=== PATIENT | male | born 1950 | race American Indian/Alaskan Native ===

== ENCOUNTER 2018-06-09 21:34 | Inpatient (IN) | payer MEDICARE ==
--- NOTE | 2018-06-09 21:43 | C.PDOC ---
History Of Present Illness 68-year-old male, PMHx includes NIDDM, presents to the emergency department with complaints of right foot infection. Pt had some swelling to the right fourth toe. He saw Dr Mcnair approximately 10-12 days ago. He continued to wear boots at work, and now his right toe is gangrenous. He denies any fever, chills , nausea/vomiting. Time Seen by Provider: 06/09/18 21:41 History Per: Patient History/Exam Limitations: no limitations Onset/Duration Of Symptoms: Days Current Symptoms Are (Timing): Still Present Severity: Moderate Pain Scale Rating Of: 4 Reports Recently: Seen In ED, Treated By A Physician, Hospitalized Recent travel outside of the [place]: No Additional History Per: Family Past Medical History Reviewed: Historical Data, Nursing Documentation, Vital Signs Vital Signs: Last Vital Signs Temp 97.7 F 06/09/18 21:43 Pulse 70 06/09/18 21:43 Resp 14 06/09/18 21:43 BP 148/73 06/09/18 21:43 Pulse Ox 97 06/09/18 22:38 - Medical History PMH: Diabetes, HTN, Hypercholesterolemia - [facility] Procedures CLOSURE SKIN & SUBCUTANEOUS NEC (05/13/14) TOE AMPUTATION (05/13/14) VACCINATION NEC (05/13/14) Family History: States: Diabetes, Hypertension - Social History Hx Tobacco Use: No Hx Alcohol Use: Yes (long time ago) Hx Substance Use: No - Immunization History Hx Tetanus Toxoid Vaccination: No Hx Influenza Vaccination: No Hx Pneumococcal Vaccination: No Review Of Systems Constitutional: Negative for: Fever, Chills Cardiovascular: Negative for: Chest Pain Respiratory: Negative for: Shortness of Breath Gastrointestinal: Negative for: Nausea, Vomiting, Abdominal Pain Musculoskeletal: Positive for: Foot Pain Skin: Positive for: Other (gangrene r 4th toe) Neurological: Negative for: Weakness, Numbness Psych: Negative for: Anxiety Physical Exam - Physical Exam Appears: Non-toxic, No Acute Distress Skin: Warm, Dry, No Rash Head: Atraumatic, Normacephalic Eye(s): bilateral: Normal Inspection Nose: Normal Oral Mucosa: Moist Lips: Normal Appearing Neck: Supple Chest: Symmetrical Cardiovascular: Rhythm Regular, No Murmur Respiratory: No Decreased Breath Sounds, No Accessory Muscle Use Gastrointestinal/Abdominal: Soft, No Tenderness, No Distention Back: No CVA Tenderness Extremity: No Deformity, Other (right foot with mild pedal edema. Mildly gangrenous black right fourth toe. ) Extremity: Right: Painful To Bear Weight Pulses: Left Dorsalis Pedis: Normal, Right Dorsalis Pedis: Normal Neurological/Psych: Oriented x3, Normal Speech Gait: Unsteady ED Course And Treatment - Laboratory Results Result Diagrams: 06/09/18 22:02 06/09/18 22:02 ECG: Interpreted By Me, Viewed By Me ECG Rhythm: Sinus Rhythm (82), Nonspecific Changes O2 Sat by Pulse Oximetry: 97 Pulse Ox Interpretation: Normal Disposition Discussed With Dr.: Aldo Yepez Comment: accepted the pt on his service and took over the care at 11:24 PM Doctor Will See Patient In The: Hospital Counseled Patient/Family Regarding: Studies Performed, Diagnosis - Disposition Disposition: HOSPITALIZED Disposition Time: 21:43 Condition: GUARDED - POA Present On Arrival: Poor Glycemic Control - Clinical Impression Clinical Impression: Osteomyelitis of ankle or foot, Gangrene associated with diabetes mellitus - Scribe Statement The provider has reviewed the documentation as recorded by the Scribe (Samina Arrington) All medical record entries made by the Scribe were at my direction and personally dictated by me. I have reviewed the chart and agree that the record accurately reflects my personal performance of the history, physical exam, medical decision making, and the department course for this patient. I have also personally directed, reviewed, and agree with the discharge instructions and disposition. Decision To Admit - Pt Status Changed To: Hospital Disposition Of: Inpatient - Admit Certification Admit to Inpatient:: After my assessment, the patient will require hospitalization for at least two midnights. This is because of the severity of symptoms shown, intensity of services needed, and/or the medical risk in this patient being treated as an outpatient. - InPatient: Physician Admission Certification: I certify that this patient requires 2 or more midnights of care for the following reason:: After my assessment, the patient will require hospitalization for at least two midnights. This is because of the severity of symptoms shown, intensity of services needed, and/or the medical risk in this patient being treated as an outpatient. - . Bed Request Type: Regular Admitting Physician: Aldo Yepez Patient Diagnosis: Osteomyelitis of ankle or foot, Gangrene associated with diabetes mellitus
[2018-06-09 21:44] VITALS: BMI 20.9
[2018-06-09 22:05] LABS: BASO # 0.1 K/uL (0.0-0.2); EOS # 1.7 K/uL (0.0-0.7); EOS % 18.6 % (0.0-4.0); HEMOGLOBIN 11.9 g/dL (12.0-18.0); LYMPH # 2.5 K/uL (1.0-4.3); LYMPH % 27.9 % (20.0-40.0); MEAN CELL VOLUME 87.1 fL (80.0-94.0); MEAN CORPUSCULAR HEMOGLOBIN 28.9 pg (27.0-31.0); MEAN CORPUSCULAR HGB CONC 33.1 g/dL (33.0-37.0); MEAN PLATELET VOLUME 10.6 fL (7.2-11.7); MONO # 0.8 K/uL (0.0-0.8); MONO % 8.3 % (0.0-10.0); NEUT % 44.2 % (50.0-75.0); NRBC % 0.1 % (0.0-2.0); RBC 4.12 Mil/uL (4.40-5.90); RED CELL DISTRIBUTION WIDTH 13.2 % (11.5-14.5); WHITE BLOOD COUNT 9.1 K/uL (4.8-10.8)
[2018-06-09 22:08] LABS: VENOUS BLOOD GAS BASE EXCESS 1.4 mmol/L (0.0-2.0); VENOUS BLOOD GAS PCO2 52 mmHg (40-60); VENOUS BLOOD GAS PO2 24 mm/Hg (30-55); VENOUS BLOOD PH 7.34 (7.32-7.43)
[2018-06-09 22:15] LABS: INR 1.1; PROTHROMBIN TIME 12.2 SECONDS (9.7-12.2)
[2018-06-09 22:24] LABS: ALBUMIN 4.2 g/dL (3.5-5.0); ALT/SGPT 19 U/L (21-72); AST/SGOT 17 U/L (17-59); BLOOD UREA NITROGEN 24 mg/dL (9-20); CALCIUM 9.4 mg/dl (8.6-10.4); GFR NON-AFRICAN AMERICAN 55
--- NOTE | 2018-06-09 22:31 | CP.PCM.CON ---
History of Present Illness - History of Present Illness History of Present Illness: Podiatry consult notes for attending Dr. Mcnair 68-year-old male Patient, PMH of NIDDM, HTN and hypercholestremia seen and evaluated at the emergency department with complaints of right 4th toe infection and gangrene. Patient is following up with Dr. Mcnair. Patient states that he is diabetic and he has neuropathy. About a month ago he stub his toe and he didn't feel it. Patient states that his toe got injured . the it started to get swallen and ulcerating. He states that he went to Dr. Mcnair who prescribed him oral antibiotic and advise him with local wound care using bacitracin. Patient states that he followed the instructions. He states that his toe got worse and now it looks darker and ulcerated. He states that he has burning pain in his toe 5/10 on VAS scale. He denies any fever, chills, nausea/ vomiting aor SOB. Patient denies any other pedal complaint PMH: Diabetes, HTN, Hypercholesterolemia. PSH: Left 4th toe amputation. Allergies: Penicillins Social Hx: Denies smoking, ETOH or illicit drug use. Review of Systems - Review of Systems Review of Systems: As per HPI Past Patient History - Past Medical History & Family History Past Medical History?: Yes - Past Social History Smoking Status: Never Smoked - CARDIAC Hx Hypercholesterolemia: Yes Hx Hypertension: Yes - PULMONARY Hx Respiratory Disorders: No - NEUROLOGICAL Hx Neurological Disorder: No Other/Comment: dm neuropathy - HEENT Hx HEENT Problems: No - RENAL Hx Chronic Kidney Disease: No - ENDOCRINE/METABOLIC Hx Endocrine Disorders: Yes Hx Diabetes Mellitus Type 2: Yes - HEMATOLOGICAL/ONCOLOGICAL Hx Blood Disorders: No - INTEGUMENTARY Hx Dermatological Problems: Yes Other/Comment: left 4th toe brown discoloration - MUSCULOSKELETAL/RHEUMATOLOGICAL Hx Musculoskeletal Disorders: Yes Hx Falls: No - GASTROINTESTINAL Hx Gastrointestinal Disorders: No - GENITOURINARY/GYNECOLOGICAL Hx Genitourinary Disorders: No - PSYCHIATRIC Hx Substance Use: No - SURGICAL HISTORY Hx Surgeries: No - ANESTHESIA Hx Anesthesia: No Hx Anesthesia Reactions: No Hx Malignant Hyperthermia: No Meds Allergies/Adverse Reactions: Allergies Allergy/AdvReac Type Severity Reaction Status Date / Time Penicillins Allergy Verified 06/09/18 21:47 Physical Exam - Constitutional Appears: Well, Non-toxic, No Acute Distress - Head Exam Head Exam: ATRAUMATIC, NORMOCEPHALIC - Extremities Exam Additional comments: LE focused exam: Vasc: DP/PT 2/4 b/l. Cap refill < 3 sec X 8. Temp gradient warm to cool from proximal to distal. Neuro: Protective sensation diminished b/l. Derm: Right 4th toe looks hyperpigmented and gangrenous. toe tip has an ulcer 1 X 1 X 1 cm. the ulcer is tracking, probing to bone, positive malodor, positive drainage of purulent drainage. MSK: No pain on palpating the 4th right toe. Muscle power intact 5/5 in all groups. left 4th toe is amputated. - Neurological Exam Neurological exam: Alert, Oriented x3 - Psychiatric Exam Psychiatric exam: Normal Affect, Normal Mood Results - Vital Signs Recent Vital Signs: Last Vital Signs Temp 97.7 F 06/09/18 21:43 Pulse 70 06/09/18 21:43 Resp 14 06/09/18 21:43 BP 148/73 06/09/18 21:43 Pulse Ox 97 06/09/18 21:43 - Labs Result Diagrams: 06/09/18 22:02 06/09/18 22:02 Labs: Laboratory Results - last 24 hr 06/09/18 06/09/18 06/09/18 21:44 22:02 22:02 WBC 9.1 RBC 4.12 L Hgb 11.9 L Hct 35.9 MCV 87.1 MCH 28.9 MCHC 33.1 RDW 13.2 Plt Count 190 MPV 10.6 Neut % (Auto) 44.2 L Lymph % (Auto) 27.9 [place] % (Auto) 8.3 Eos % (Auto) 18.6 H Baso % (Auto) 1.0 Neut # (Auto) 4.0 Lymph # (Auto) 2.5 Porter # (Auto) 0.8 Eos # (Auto) 1.7 H Baso # (Auto) 0.1 PT 12.2 INR 1.1 APTT 32 pO2 VBG pH VBG pCO2 VBG HCO3 VBG Total CO2 VBG O2 Sat (Calc) VBG Base Excess VBG Potassium Glucose Lactate Sodium Potassium Chloride Carbon Dioxide Anion Gap BUN Creatinine Est GFR ( Amer) Est GFR (Non-Af Amer) POC Glucose (mg/dL) 196 H Random Glucose Calcium Total Bilirubin AST ALT Alkaline Phosphatase Total Protein Albumin Globulin Albumin/Globulin Ratio Venous Blood Potassium 06/09/18 06/09/18 22:02 22:04 WBC RBC Hgb Hct MCV MCH MCHC RDW Plt Count MPV Neut % (Auto) Lymph % (Auto) [place] % (Auto) Eos % (Auto) Baso % (Auto) Neut # (Auto) Lymph # (Auto) Porter # (Auto) Eos # (Auto) Baso # (Auto) PT INR APTT pO2 24 L VBG pH 7.34 VBG pCO2 52 VBG HCO3 24.4 VBG Total CO2 29.7 H VBG O2 Sat (Calc) 45.4 VBG Base Excess 1.4 VBG Potassium 4.0 Glucose 183 H Lactate 1.2 Sodium 140 138.0 Potassium 4.4 Chloride 102 102.0 Carbon Dioxide 23 Anion Gap 19 BUN 24 H Creatinine 1.3 Est GFR ( Amer) > 60 Est GFR (Non-Af Amer) 55 POC Glucose (mg/dL) Random Glucose 186 H Calcium 9.4 Total Bilirubin 0.6 AST 17 D ALT 19 L D Alkaline Phosphatase 108 Total Protein 8.4 H Albumin 4.2 Globulin 4.2 H Albumin/Globulin Ratio 1.0 Venous Blood Potassium 4.0 Assessment & Plan - Assessment and Plan (Free Text) Assessment: 68 y/o M patient seen and evaluated in the ED for infected gangrenous right 4th toe. Plan: Patient seen and evaluated in the ED Plan discussed in details with attending dr. Mcnair. Chart, vitals and labs reviewed; afebrile, no leukocytosis X-ray reviewed; Right 4th digit osteomyelitis. Wound culture ordered and sent to the lab. Patient will be admitted by the primary team. Discussed that the right 4th digit will need amputation with Dr. Mcnair and the patient and his daughter. Patient and his daughter expressed verbal understanding Ordered MIKE-PVR after admission. Ordered ID consult after admission. Ordered Hb A1C Right 4th toe dressed usin betadine and DSD. Podiatry will follow up the patient while in house. - Date & Time Date: 06/09/18 Time: 22:59
[2018-06-09] MEDS ORDERED: Vancomycin 1 GM 1 GM/250 ML BAG IVPB STA (22:44)
[2018-06-09] MEDS ORDERED: Vancomycin 1 GM 1 GM/250 ML BAG IVPB SCH (22:45)
[2018-06-09] MEDS ORDERED: Iohexol 300 100 ML IJ ONE (22:48)
[2018-06-09] MEDS: Clindamycin 300 MG in Sodium Chloride 0.9% 50 ML IVPB SCH (23:07)
[2018-06-09] MEDS ORDERED: Vancomycin 1 gm/NS 200 ml 1 GM/200 ML BAG IVPB STA (23:29)
[2018-06-09] MEDS ORDERED: Oxycodone/Acetaminophen 5/325 mg Tab PO PRN (23:29)
[2018-06-10 00:17] LABS: SQUAMOUS EPITHIAL < 1 /hpf (0-5); URINE BILIRUBIN NEGATIVE (NEGATIVE); URINE BLOOD NEGATIVE (NEGATIVE); URINE CLARITY Clear (Clear); URINE COLOR Straw (YELLOW); URINE GLUCOSE (UA) 2+ mg/dL (Normal); URINE HYALINE CAST 0-2 /lpf (0-2); URINE LEUKOCYTE ESTERASE NEG Leu/uL (Negative); URINE PROTEIN NEGATIVE (NEGATIVE); URINE UROBILINOGEN NORMAL mg/dL (0.2-1.0)
[2018-06-10] MEDS: Clindamycin 300 MG in Sodium Chloride 0.9% 50 ML IVPB SCH ×2 (04:56→09:44)
[2018-06-10 09:22] LABS: ALBUMIN 4.1 g/dL (3.5-5.0); ALT/SGPT 21 U/L (21-72); AST/SGOT 14 U/L (17-59); BLOOD UREA NITROGEN 16 mg/dL (9-20); CALCIUM 9.1 mg/dl (8.6-10.4); GFR NON-AFRICAN AMERICAN > 60
--- NOTE | 2018-06-10 09:24 | RAD ---
Date of service: 06/09/2018 PROCEDURE: CHEST RADIOGRAPH, 1 VIEW HISTORY: SOB COMPARISON: None available. FINDINGS: LUNGS: Clear. PLEURA: No pneumothorax or pleural fluid seen. CARDIOVASCULAR: Normal. OSSEOUS STRUCTURES: No significant abnormalities. VISUALIZED UPPER ABDOMEN: Normal. OTHER FINDINGS: None. IMPRESSION: No acute cardiopulmonary disease appreciated.
--- NOTE | 2018-06-10 09:29 | RAD ---
PROCEDURE: Radiographs of the right 4th digit. TECHNIQUE:: AP radiograph of the right foot, with oblique and lateral view of the right 4th digit. COMPARISON: None. FINDINGS: BONES: Soft tissue loss at the distal right 4th digit denuded cysts periosteum most likely with limited periostitis suggested. Osteomyelitis is not excluded at the distal phalanx right 4th digit with the middle and proximal phalanges unremarkable otherwise. Incidentally, erosive changes are identified at the head of the 2nd metatarsal bone in the interval with the proximal phalanx right 2nd digit spared. This may be on a degenerative basis or postoperatively though the latter is not favored. Clinically correlate. Consider follow-up MRI as potential osteomyelitis would be difficult to exclude here is well. JOINTS: Degenerative joint space narrowing and cortical sclerosis are identified throughout the digits diffusely, compatible with degenerative joint disease as well as at the 1st metatarsophalangeal joint where a hallux valgus deformity is reiterated. SOFT TISSUES: As above. OTHER FINDINGS: None. IMPRESSION: Tissue loss compatible the clinical diagnosis of gangrene of the right 4th digit is appreciated with limited osteomyelitis not excluded at the distal phalanx right right 4th digit. Osteomyelitis is also potentially at an area of bony erosion at the head of the 2nd right metatarsal bone as discussed above. Follow-up MRI is recommended for greater characterization of the 2nd metatarsal bone.
[2018-06-10] MEDS ORDERED: Azithromycin 500 MG in Sodium Chloride 0.9% 250 ML IVPB SCH (10:00)
[2018-06-10] MEDS ORDERED: (Novolog) Insulin Aspart, Recombinant 100 u/ml 10 ml vial SC SCH (10:00)
--- NOTE | 2018-06-10 11:38 | CT ---
Date of service: 06/09/2018 PROCEDURE: CT RIGHT FOOT WITH CONTRAST. HISTORY: right foot, att 4th toe ; 4th digit gangrene. COMPARISON: Right foot radiographs 12/10/2017. TECHNIQUE: A volumetric CT acquisition through the right foot was performed lung intravenous contrast administration. Reformatted datasets provided in multiple planes using various techniques. Contrast Dose: Omnipaque 300, 100 cc Radiation dose:Total exam DLP = 316.08 mGy-cm. This CT exam was performed using one or more of the following dose reduction techniques: Automated exposure control, adjustment of the mA and/or kV according to patient size, and/or use of iterative reconstruction technique. FINDINGS: No abscess appreciated. Diffuse soft tissue edema is appreciated at the lateral ankle and hindfoot subcutaneous distribution as well as dermis suggests of cellulitis. Lesser similar changes are present throughout the remainder of the right foot. Emphysematous changes seen related to the distal portion right 4th digit with emphysematous changes which could be compatible with the clinical history of gangrene reported in right foot radiograph 06/09/2018. Soft tissue loss is less apparent in the current examination and prior radiographs though tissue loss is clearly evident related to the medial distal 4th digit. It is not clear that the bone is exposed at this time at the distal phalanx however, as suspected in prior radiograph. Emphysematous changes reflect destruction internally at the distal and middle phalanges of the 4th digit compatible with osteomyelitis/gangrene. Further, erosive changes are well corticated related to the head of the 2nd metatarsal bone. This does not appear to be a periarticular erosion though gout may still be in effect here. Clinically correlate further. Center follow-up MRI for additional characterization as osteomyelitis is not favored but not completely excluded here. No fracture dislocation or subluxation appreciated throughout the exam. Degenerative changes scattered throughout the midfoot hindfoot and forefoot joints diffusely. IMPRESSION: Osteomyelitis/gangrene distal and middle phalanges right 4th digit. Nonspecific erosive changes at the head of the 2nd metatarsal bone may reflect the positional arthritis or potential osteomyelitis. Consider follow-up MRI for additional characterization. No abscess. Lateral hindfoot cellulitis extends to the level of the ankle without emphysematous change or retained radiodense foreign body demonstrated. Concordant preliminary report from [facility], 06/10/2018.
[2018-06-10] MEDS: (Novolog) Insulin Aspart, Recombinant 100 u/ml 10 ml vial SC SCH ×3 (12:27→23:47)
--- NOTE | 2018-06-10 13:09 | CP.PCM.CON ---
History of Present Illness - History of Present Illness History of Present Illness: dictated Past Patient History - Past Medical History & Family History Past Medical History?: Yes - Past Social History Smoking Status: Never Smoked - CARDIAC Hx Cardiac Disorders: Yes Hx Hypercholesterolemia: Yes Hx Hypertension: Yes - PULMONARY Hx Respiratory Disorders: No - NEUROLOGICAL Hx Neurological Disorder: Yes Other/Comment: dm neuropathy - HEENT Hx HEENT Problems: No - RENAL Hx Chronic Kidney Disease: No - ENDOCRINE/METABOLIC Hx Endocrine Disorders: Yes Hx Diabetes Mellitus Type 2: Yes - HEMATOLOGICAL/ONCOLOGICAL Hx Blood Disorders: No - INTEGUMENTARY Hx Dermatological Problems: Yes Other/Comment: left 4th toe brown discoloration - MUSCULOSKELETAL/RHEUMATOLOGICAL Hx Musculoskeletal Disorders: No Hx Falls: No - GASTROINTESTINAL Hx Gastrointestinal Disorders: No - GENITOURINARY/GYNECOLOGICAL Hx Genitourinary Disorders: No - PSYCHIATRIC Hx Psychophysiologic Disorder: No Hx Substance Use: No - SURGICAL HISTORY Hx Surgeries: No - ANESTHESIA Hx Anesthesia: No Hx Anesthesia Reactions: No Hx Malignant Hyperthermia: No Meds Allergies/Adverse Reactions: Allergies Allergy/AdvReac Type Severity Reaction Status Date / Time Penicillins Allergy Verified 06/09/18 21:47 - Medications Medications: Current Medications Heparin Sodium (Porcine) (Heparin) 5,000 units SC Q12 [facility] Last Admin: 06/10/18 09:48 Dose: 5,000 units Clindamycin Phosphate 300 mg/ (Sodium Chloride) 52 mls @ 100 mls/hr IVPB Q6H ERICK PRN Reason: Protocol Last Admin: 06/10/18 09:44 Dose: 100 mls/hr Azithromycin 500 mg/ Sodium (Chloride) 250 mls @ 250 mls/hr IVPB DAILY ERICK PRN Reason: Protocol Last Admin: 06/10/18 12:28 Dose: 250 mls/hr Vancomycin HCl 500 mg/ Sodium (Chloride) 100 mls @ 100 mls/hr IVPB Q12H ERICK PRN Reason: Protocol Last Admin: 06/10/18 10:55 Dose: 100 mls/hr Insulin Aspart (Novolog) 0 unit SC ACHS ERICK PRN Reason: Protocol Last Admin: 06/10/18 12:27 Dose: 2 units Oxycodone/Acetaminophen (Percocet 5/325 Mg Tab) 1 tab PO Q6H PRN PRN Reason: Pain, moderate (4-7) Stop: 06/12/18 23:30 Results - Vital Signs Recent Vital Signs: Last Vital Signs Temp 98.7 F 06/10/18 08:00 Pulse 89 06/10/18 08:00 Resp 20 06/10/18 08:00 BP 144/71 06/10/18 08:00 Pulse Ox 99 06/10/18 08:00 - Labs Result Diagrams: 06/09/18 22:02 06/10/18 08:56 Labs: Laboratory Results - last 24 hr 06/09/18 06/09/18 06/09/18 21:44 22:02 22:02 WBC 9.1 RBC 4.12 L Hgb 11.9 L Hct 35.9 MCV 87.1 MCH 28.9 MCHC 33.1 RDW 13.2 Plt Count 190 MPV 10.6 Neut % (Auto) 44.2 L Lymph % (Auto) 27.9 [place] % (Auto) 8.3 Eos % (Auto) 18.6 H Baso % (Auto) 1.0 Neut # (Auto) 4.0 Lymph # (Auto) 2.5 [place] # (Auto) 0.8 Eos # (Auto) 1.7 H Baso # (Auto) 0.1 PT 12.2 INR 1.1 APTT 32 pO2 VBG pH VBG pCO2 VBG HCO3 VBG Total CO2 VBG O2 Sat (Calc) VBG Base Excess VBG Potassium Glucose Lactate Sodium Potassium Chloride Carbon Dioxide Anion Gap BUN Creatinine Est GFR ( Amer) Est GFR (Non-Af Amer) POC Glucose (mg/dL) 196 H Random Glucose Hemoglobin A1c Calcium Total Bilirubin AST ALT Alkaline Phosphatase Total Protein Albumin Globulin Albumin/Globulin Ratio Venous Blood Potassium Urine Color Urine Clarity Urine pH Ur Specific [place] Urine Protein Urine Glucose (UA) Urine Ketones Urine Blood Urine Nitrate Urine Bilirubin Urine Urobilinogen Ur Leukocyte Esterase Urine WBC (Auto) Urine RBC (Auto) Ur Squamous Epith Cells Hyaline Casts B-Hydroxybutyrate 06/09/18 06/09/18 06/09/18 22:02 22:04 23:30 WBC RBC Hgb Hct MCV MCH MCHC RDW Plt Count MPV Neut % (Auto) Lymph % (Auto) [place] % (Auto) Eos % (Auto) Baso % (Auto) Neut # (Auto) Lymph # (Auto) [place] # (Auto) Eos # (Auto) Baso # (Auto) PT INR APTT pO2 24 L VBG pH 7.34 VBG pCO2 52 VBG HCO3 24.4 VBG Total CO2 29.7 H VBG O2 Sat (Calc) 45.4 VBG Base Excess 1.4 VBG Potassium 4.0 Glucose 183 H Lactate 1.2 Sodium 140 138.0 Potassium 4.4 Chloride 102 102.0 Carbon Dioxide 23 Anion Gap 19 BUN 24 H Creatinine 1.3 Est GFR ( Amer) > 60 Est GFR (Non-Af Amer) 55 POC Glucose (mg/dL) Random Glucose 186 H Hemoglobin A1c 9.2 H Calcium 9.4 Total Bilirubin 0.6 AST 17 D ALT 19 L D Alkaline Phosphatase 108 Total Protein 8.4 H Albumin 4.2 Globulin 4.2 H Albumin/Globulin Ratio 1.0 Venous Blood Potassium 4.0 Urine Color Urine Clarity Urine pH Ur Specific [place] Urine Protein Urine Glucose (UA) Urine Ketones Urine Blood Urine Nitrate Urine Bilirubin Urine Urobilinogen Ur Leukocyte Esterase Urine WBC (Auto) Urine RBC (Auto) Ur Squamous Epith Cells Hyaline Casts B-Hydroxybutyrate 0.33 H 06/10/18 06/10/18 06/10/18 00:07 07:43 08:56 WBC RBC Hgb Hct MCV MCH MCHC RDW Plt Count MPV Neut % (Auto) Lymph % (Auto) [place] % (Auto) Eos % (Auto) Baso % (Auto) Neut # (Auto) Lymph # (Auto) [place] # (Auto) Eos # (Auto) Baso # (Auto) PT INR APTT pO2 VBG pH VBG pCO2 VBG HCO3 VBG Total CO2 VBG O2 Sat (Calc) VBG Base Excess VBG Potassium Glucose Lactate Sodium 139 Potassium 4.0 Chloride 102 Carbon Dioxide 25 Anion Gap 15 BUN 16 Creatinine 0.9 Est GFR ( Amer) > 60 Est GFR (Non-Af Amer) > 60 POC Glucose (mg/dL) 144 H Random Glucose 141 H Hemoglobin A1c Calcium 9.1 Total Bilirubin 0.4 AST 14 L ALT 21 Alkaline Phosphatase 115 Total Protein 8.0 Albumin 4.1 Globulin 4.0 H Albumin/Globulin Ratio 1.0 Venous Blood Potassium Urine Color Straw Urine Clarity Clear Urine pH 6.0 Ur Specific [place] 1.032 H Urine Protein Negative Urine Glucose (UA) 2+ H Urine Ketones Trace Urine Blood Negative Urine Nitrate Negative Urine Bilirubin Negative Urine Urobilinogen Normal Ur Leukocyte Esterase Neg Urine WBC (Auto) < 1 Urine RBC (Auto) < 1 Ur Squamous Epith Cells < 1 Hyaline Casts 0-2 B-Hydroxybutyrate 06/10/18 06/10/18 08:56 11:29 WBC RBC Hgb Hct MCV MCH MCHC RDW Plt Count MPV Neut % (Auto) Lymph % (Auto) [place] % (Auto) Eos % (Auto) Baso % (Auto) Neut # (Auto) Lymph # (Auto) [place] # (Auto) Eos # (Auto) Baso # (Auto) PT INR APTT pO2 VBG pH VBG pCO2 VBG HCO3 VBG Total CO2 VBG O2 Sat (Calc) VBG Base Excess VBG Potassium Glucose Lactate Sodium Potassium Chloride Carbon Dioxide Anion Gap BUN Creatinine Est GFR ( Amer) Est GFR (Non-Af Amer) POC Glucose (mg/dL) 210 H Random Glucose Hemoglobin A1c 9.2 H Calcium Total Bilirubin AST ALT Alkaline Phosphatase Total Protein Albumin Globulin Albumin/Globulin Ratio Venous Blood Potassium Urine Color Urine Clarity Urine pH Ur Specific [place] Urine Protein Urine Glucose (UA) Urine Ketones Urine Blood Urine Nitrate Urine Bilirubin Urine Urobilinogen Ur Leukocyte Esterase Urine WBC (Auto) Urine RBC (Auto) Ur Squamous Epith Cells Hyaline Casts B-Hydroxybutyrate
[2018-06-10] MEDS: Aztreonam 1 GM in Sodium Chloride 0.9% 100 ML IVPB SCH ×2 (14:46→21:56)
[2018-06-10] MEDS: Vancomycin 1 gm/NS 200 ml 1 GM/200 ML BAG IVPB SCH (17:19)
[2018-06-10] MEDS: Pantoprazole 40 mg EC Tab PO SCH (17:20)
--- NOTE | 2018-06-10 17:33 | CP.PCM.PN ---
Subjective - Date & Time of Evaluation Date of Evaluation: 06/10/18 Time of Evaluation: 17:30 - Subjective Subjective: Podiatry Progress Note for Dr. Mcnair 68M seen and evaluated for infected, gangrenous right fourth toe. Patient is AAO x 3 and NAD, resting comfortably in bed. States that pain in the toe is well controlled. Denies any acute overnight events or new pedal complaints at this time. Denies any recent N/V/F/C/CP/SOB/D/posterior calf pain when squeezed. Objective - Vital Signs/Intake and Output Vital Signs (last 24 hours): Temp Pulse Resp BP Pulse Ox 98.8 F 80 20 144/71 99 06/10/18 15:00 06/10/18 15:00 06/10/18 15:00 06/10/18 08:00 06/10/18 15:00 - Medications Medications: Current Medications Heparin Sodium (Porcine) (Heparin) 5,000 units SC Q12 [facility] Last Admin: 06/10/18 09:48 Dose: 5,000 units Clindamycin Phosphate 600 mg/ (Sodium Chloride) 54 mls @ 100 mls/hr IVPB Q8H ERICK PRN Reason: Protocol Last Admin: 06/10/18 16:07 Dose: 100 mls/hr Aztreonam 1 gm/ Sodium (Chloride) 100 mls @ 200 mls/hr IVPB Q8H ERICK PRN Reason: Protocol Last Admin: 06/10/18 14:46 Dose: 200 mls/hr Vancomycin/Sodium Chloride (Vancomycin 1 Gm/Ns 200 Ml) 1 gm in 200 mls @ 100 mls/hr IVPB Q12H ERICK PRN Reason: Protocol Stop: 06/15/18 14:01 Last Admin: 06/10/18 17:19 Dose: 100 mls/hr Insulin Aspart (Novolog) 0 unit SC ACHS ERICK PRN Reason: Protocol Last Admin: 06/10/18 17:26 Dose: Not Given Naproxen (Anaprox Ds) 550 mg PO Q12 [facility] Oxycodone/Acetaminophen (Percocet 5/325 Mg Tab) 1 tab PO Q6H PRN PRN Reason: Pain, moderate (4-7) Stop: 06/12/18 23:30 Pantoprazole Sodium (Protonix Ec Tab) 40 mg PO DAILY [facility] Last Admin: 06/10/18 17:20 Dose: 40 mg - Labs Labs: 06/09/18 22:02 06/10/18 08:56 PT 12.2 SECONDS (9.7-12.2) 06/09/18 22:02 INR 1.1 06/09/18 22:02 APTT 32 SECONDS (21-34) 06/09/18 22:02 - Constitutional Appears: Well, Non-toxic, No Acute Distress - Extremities Exam Additional comments: LE focused exam: Vasc: DP/PT 2/4 b/l. Cap refill < 3 sec X 8. Temp gradient warm to cool from proximal to distal. Neuro: Epicritic and protective sensation grossly diminished b/l Derm: Right 4th toe hyperpigmented, edematous and gangrenous. Toe tip has an ulcer 1 X 1 X 1 cm. the ulcer is tracking, probing to bone, positive malodor, positive drainage. MSK: No pain on palpating the 4th right toe. Muscle power intact 5/5 in all groups. left 4th toe is amputated. - Neurological Exam Neurological Exam: Alert, Awake, Oriented x3 - Psychiatric Exam Psychiatric exam: Normal Affect, Normal Mood Assessment and Plan - Assessment and Plan (Free Text) Assessment: 8M seen and evaluated for infected, gangrenous right fourth toe Plan: Patient seen and evaluated Plan discussed with Dr. Mcnair Afebrile Continue abx per ID R foot X-ray (06/09): OM of the R 4th digit LE CT: Read pending MIKE-PVR: ordered Pending vascular studies, patient possibly for OR on 06/12 or 06/13 Site dressed with betadine, gauze, kirlix Podiatry will continue to follow while patient in house
[2018-06-10] MEDS: Naproxen 550 mg Tab PO SCH (21:57)
[2018-06-11] MEDS: Vancomycin 1 gm/NS 200 ml 1 GM/200 ML BAG IVPB SCH ×2 (01:13→14:59)
[2018-06-11] MEDS: Aztreonam 1 GM in Sodium Chloride 0.9% 100 ML IVPB SCH ×3 (05:08→21:44)
[2018-06-11 06:33] LABS: BASO # 0.1 K/uL (0.0-0.2); BASO % 0.9 % (0.0-2.0); EOS # 1.7 K/uL (0.0-0.7); EOS % 22.1 % (0.0-4.0); HEMOGLOBIN 13.2 g/dL (12.0-18.0); LYMPH # 1.7 K/uL (1.0-4.3); LYMPH % 21.9 % (20.0-40.0); MEAN CELL VOLUME 86.7 fL (80.0-94.0); MEAN CORPUSCULAR HEMOGLOBIN 29.4 pg (27.0-31.0); MEAN CORPUSCULAR HGB CONC 33.9 g/dL (33.0-37.0); MEAN PLATELET VOLUME 10.2 fL (7.2-11.7); MONO # 0.5 K/uL (0.0-0.8); MONO % 6.8 % (0.0-10.0); NEUT # 3.6 K/uL (1.8-7.0); NEUT % 48.3 % (50.0-75.0); NRBC % 0.1 % (0.0-2.0); PLATELET COUNT 206 K/uL (130-400); WHITE BLOOD COUNT 7.5 K/uL (4.8-10.8)
[2018-06-11 06:52] LABS: ALB/GLOB RATIO 1.1 (1.0-2.1); ALBUMIN 4.1 g/dL (3.5-5.0); ALT/SGPT 15 U/L (21-72); AST/SGOT 18 U/L (17-59); BLOOD UREA NITROGEN 14 mg/dL (9-20); CALCIUM 9.1 mg/dl (8.6-10.4); GFR NON-AFRICAN AMERICAN > 60
--- NOTE | 2018-06-11 07:49 | CON ---
Copied To: Feng Granado MD Attending MD: Feng Granado MD DATE: 06/10/2018 INFECTIOUS DISEASE CONSULT REQUESTED BY: Dr. Messina. HISTORY OF PRESENT ILLNESS: This patient is a 68-year-old male. He has history of [id number] diabetes, hypertension, hypercholesterolemia. He presented to the emergency room with the right fourth toe infection and gangrene. He has been following with Dr. Arevalo. He tells me that a month ago he think a rat bit him, and he was bleeding when he got up in the morning. He had swelling and ulceration. He went to Dr. Arevalo who gave him oral antibiotic and also local wound care with the bacitracin was prescribed. He has been following with him but he says that the foot got worse, and it was back and necrotic. He has had similar problem on the left fourth toe which was he says something fell on it a year ago, and had to undergo amputation of the fourth toe on the left foot, and he has been having burning pains in his toes; and he denied any fever, chills, nausea, or vomiting. No shortness of breath but he says the foot was getting worse, hence he is here. PAST MEDICAL HISTORY: Significant for diabetes, hypertension, hypercholesterolemia. ALLERGIC: HE IS ALLERGIC TO PENICILLIN. SOCIAL HISTORY: Negative for smoking or drinking or any drug abuse. He is , he says. SURGICAL HISTORY: Significant for a left fourth toe amputation. His primary doctor is Dr. Yepez. Past medical history is cardiac history is positive for hypertension, high cholesterol. He has no cough, cold, or any symptoms of pulmonary problems. He does have diabetic neuropathy. He says he knows he has diabetes for 8 years, and his mom also had diabetes. He has no chronic kidney disease that he knows of. He does have diabetes. No bleeding problems. No other skin issues. He did come in with discoloration of the left fourth toe, and he has had no GI symptoms. No symptoms. No substance abuse. He is allergic to penicillin exact reaction is not known. REVIEW OF SYSTEMS: He denies any headache. Denies any ear, nose, throat problems. No neck problems. No chest pain. No shortness of breath. No cough, cold. No abdominal pain. No nausea, no vomiting, no diarrhea. No urinary symptoms. He does suffer from burning pain in his legs; and he did say that he has this toe infection, and he is told that he may lose his toes. MEDICATIONS: He is on Zithromax, clindamycin, heparin, NovoLog, Percocet, and he is on vancomycin 1 g every 12 hours. PHYSICAL EXAMINATION: VITAL SIGNS: I find his temperature is 98.7, pulse 89, blood pressure is 144/71, respirations are 20. Vitals are stable. HEENT: Head is atraumatic, normocephalic. Pupils are reacting to light. NECK: Supple. JVP is flat. LUNGS: Clear. No crackles or rales present. HEART: S1, S2 regular. No murmurs present. ABDOMEN: Soft, nontender. No guarding, no rigidity present. EXTREMITIES: Right foot he has infected gangrene of the right fourth toe. Chest x-ray is negative. Wound culture is pending, and the patient will be seen by Dr. Mcnair; and I see that the labs show white count is 9.1, hemoglobin 11.9, hematocrit 35.9, platelet count is 190. ABG is noted. BUN is 16, creatinine 0.9, anion gap is 15, hemoglobin A1c beta hydroxybutyrate was 0.33 when he came in and glucose was 2+ in the urine. UA has no leukocytes, and the bicarb is okay. The patient had a lower extremity CAT scan done, and the CAT scan shows osteomyelitis, gangrene, distal and middle phalanx right fourth digit, nonspecific erosive changes at the head of the second metatarsal bone reflects a positional arthritis or potential osteomyelitis. Consider followup MRI to characterize no abscess, lateral hindfoot cellulitis extend the level of ankle without emphysematous changes or retained radiodense foreign body remonstrated. Lateral hindfoot cellulitis extends to the level of the ankle without emphysematous changes or retained radiodense foreign body. So at this time, the patient does have cellulitis along with osteomyelitis. Blood cultures are not back. I hope they did it, and he is 68. He is on vancomycin only 500 every 12 hours, and his creatinine was okay, so I would up the vancomycin at this time. He is allergic to penicillin. I would leave the clindamycin increase the dose and discontinue Zithromax, and will follow with Azactam. We will follow. Feng Granado MD
[2018-06-11] MEDS: (Novolog) Insulin Aspart, Recombinant 100 u/ml 10 ml vial SC SCH ×4 (08:24→21:31)
[2018-06-11 08:50] LABS: ERYTHROCYTE SEDIMENTATION RATE 60 mm/hr (0-15)
[2018-06-11 08:52] LABS: EOSINOPHIL 16 % (0-4); LYMPHOCYTE 20 % (20-40); MONOCYTE 5 % (0-10); NEUTROPHIL 59 % (50-75); PLATELET ESTIMATE NORMAL (NORMAL); TOTAL CELLS COUNTED 100
[2018-06-11 08:54] LABS: LARGE PLATELETS PRESENT
[2018-06-11] MEDS: Naproxen 550 mg Tab PO SCH ×2 (10:10→21:44)
[2018-06-11] MEDS: Pantoprazole 40 mg EC Tab PO SCH (10:10)
--- NOTE | 2018-06-11 13:46 | MRI ---
MRI right forefoot History: Ulcer. Comparison: None available. Technique: Multi-echo multiplanar sequences were performed through the right forefoot without the use of intravenous contrast. Findings: Prominent soft tissue ulceration/defect consistent with patient's known gas gangrene/ulceration at level of the 4th middle and distal phalanges. Prominent signal abnormality seen at the level of the 4th distal, middle, and proximal phalanges with decreased T1 signal and increased STIR signal consistent with an acute osteomyelitis. Additional signal abnormality with increased STIR signal noted at the head of the 4th metatarsal bone suggestive for developing acute osteomyelitis. Prominent reticulation and edema within the circumferential subcutaneous soft tissues at that level. Severe hallux valgus deformity with prominent degenerative changes noted at the 1st MTP joint space. Reactive edema seen at the head of the 1st metatarsal bone. Prominent degenerative changes noted at the 1st metatarsus sesamoid joint space. Reactive edema and or osteochondral change noted at the base of the 1st proximal phalanx. Degenerative changes with some mild reactive edema noted at the distal tuft of the 1st distal phalanx, nonspecific. Prominent degenerative changes noted at the 2nd MTP joint space with joint space narrowing, subchondral edema, subchondral cyst formation, and bony hypertrophy. In addition, there is signal abnormality noted at the base of the 2nd proximal phalanx and head of the metatarsal bone with decreased T1 signal and increased STIR signal suggestive for prominent osteochondral change with some possible superimposed infraction at the 2nd metatarsal head with articular surface flattening. Superimposed acute inflammatory and or infectious changes cannot entirely be excluded. Minimal nonspecific reactive edema at the head of the 3rd metatarsal bone and base of the 3rd proximal phalanx. Subchondral cyst formation with some mild reactive edema seen within the cuboid bone. Prominent blooming artifact noted within the medial volar soft tissues at the level of the 1st metatarsal bone and 1st flexor tendon which may be related to prior surgery. Clinical correlation. Impression: 1. Prominent soft tissue ulceration/defect consistent with patient's known gas gangrene/ulceration at level of the 4th middle and distal phalanges. Prominent signal abnormality seen at the level of the 4th distal, middle, and proximal phalanges with decreased T1 signal and increased STIR signal consistent with an acute osteomyelitis. Additional signal abnormality with increased STIR signal noted at the head of the 4th metatarsal bone suggestive for developing acute osteomyelitis. Prominent reticulation and edema within the circumferential subcutaneous soft tissues at that level. 2. Severe hallux valgus deformity with prominent degenerative changes noted at the 1st MTP joint space. Reactive edema seen at the head of the 1st metatarsal bone. Prominent degenerative changes noted at the 1st metatarsus sesamoid joint space. Reactive edema and or osteochondral change noted at the base of the 1st proximal phalanx. 3. Degenerative changes with some mild reactive edema noted at the distal tuft of the 1st distal phalanx, nonspecific. 4. Prominent degenerative changes noted at the 2nd MTP joint space with joint space narrowing, subchondral edema, subchondral cyst formation, and bony hypertrophy. In addition, there is signal abnormality noted at the base of the 2nd proximal phalanx and head of the metatarsal bone with decreased T1 signal and increased STIR signal suggestive for prominent osteochondral change with some possible superimposed infraction at the 2nd metatarsal head with articular surface flattening. Superimposed acute inflammatory and or infectious changes cannot entirely be excluded. 5. Minimal nonspecific reactive edema at the head of the 3rd metatarsal bone and base of the 3rd proximal phalanx. 6. Subchondral cyst formation with some mild reactive edema seen within the cuboid bone. 7. Prominent blooming artifact noted within the medial volar soft tissues at the level of the 1st metatarsal bone and 1st flexor tendon which may be related to prior surgery. Clinical correlation.
--- NOTE | 2018-06-11 18:43 | VASCLAB ---
Date of service: 06/11/2018 STUDY DESCRIPTION: HISTORY: Diabetic wound PRIORS: Last arterial doppler 05/19/2014, abnormal right side. TECHNIQUE: Pulse volume recording waveforms and segmental pressures of bilateral lower extremities at multiple levels were obtained. Ankle Brachial Indices (ABIs) were calculated. Report prepared by SY Orta RIGHT LOWER EXTREMITY: * Brachial artery: Pressure - 160 mmHg. * High thigh: Pressure - 220 mmHg: Ratio - n/c: PVR waveform - Pulsatile * Low thigh: Pressure - 220 mmHg: Ratio - n/c PVR waveform: Pulsatile * Calf: Pressure - 220 mmHg: Ratio - n/c PVR waveform: Reduced * Posterior tibial Artery: Non audible pulse PVR waveform: Reduced * Dorsalis pedis Artery: Pressure - 98 mmHg: Ratio - 0.61 PVR waveform: Reduced * Ankle brachial index (MIKE): 0.61 LEFT LOWER EXTREMITY: * Brachial artery: Pressure - 158 mmHg. * High thigh: Pressure - 220 mmHg: Ratio - n/c: PVR waveform - Pulsatile * Low thigh: Pressure - 181 mmHg: Ratio - 1.13 PVR waveform: Pulsatile * Calf: Pressure - 192 mmHg: Ratio - 1.20 PVR waveform: Pulsatile * Posterior tibial Artery: Pressure - 184 mmHg: Ratio - 1.15 PVR waveform: Pulsatile * Dorsalis pedis Artery: Pressure - 171 mmHg: Ratio - 1.07 PVR waveform: Pulsatile * Ankle brachial index (MIKE): 1.15 OTHER FINDINGS: None. IMPRESSION: Right: Non audible right posterior tibial pulse. Ankle brachial index and arterial PVR waveforms are suggestive of moderately decreased arterial perfusion beginning at the calf artery level. Left: Ankle brachial index and arterial PVR waveforms are suggestive of normal arterial perfusion to the left lower extremity, at rest.
--- NOTE | 2018-06-11 18:48 | VASCLAB ---
Date of service: 06/11/2018 PROCEDURE: HISTORY: Gangrene, right. COMPARISON: Last arterial duplex 07/18/2013, abnormal right side. TECHNIQUE: Grayscale and duplex Doppler evaluation of the right common femoral, femoral, profunda femoral, popliteal, posterior tibial, anterior tibial and dorsalis pedis arteries was performed. Report prepared by SY Orta FINDINGS: RIGHT LOWER EXTREMITY: * Common Femoral Artery: Peak Systolic Velocity - 82: Doppler Waveform: Triphasic.: Plaque description - * Profunda Femoral Artery: Peak Systolic Velocity - 60: Doppler Waveform: Triphasic.: Plaque description - * Femoral Artery o Proximal Segment: Peak Systolic Velocity - 64: Doppler Waveform: Triphasic.: Plaque description - o Middle Segment: Peak Systolic Velocity - 60: Doppler Waveform: Biphasic: Plaque description - o Distal Segment: Peak Systolic Velocity - 66: Doppler Waveform: Biphasic: Plaque description - * Popliteal Artery o Proximal Segment: Peak Systolic Velocity - 16: Doppler Waveform: Monophasic: Plaque description - o Middle Segment: Peak Systolic Velocity - 26: Doppler Waveform: Monophasic: Plaque description - o Distal Segment: Peak Systolic Velocity - 33: Doppler Waveform: Monophasic: Plaque description - * Posterior Tibial Artery: Peak Systolic Velocity - 0: Doppler Waveform: Absent: Plaque description - (no flow at distal segment) * Anterior Tibial Artery: Peak Systolic Velocity - 56: Doppler Waveform: Monophasic: Plaque description - * Dorsalis Pedis Artery: Peak Systolic Velocity - 47: Doppler Waveform: Monophasic: Plaque description - * Peroneal Artery: Peak Systolic Velocity - 34: Doppler Waveform: Monophasic: Plaque description - OTHER FINDINGS: MIKE DATA: Right: 0.61 Left: 1.15 IMPRESSION: 1. No flow detected at the distal posterior tibial artery. 2. The remaining arteries appeared patent, however with monophasic waveforms beginning at the popliteal artery level.
--- NOTE | 2018-06-11 19:25 | CP.PCM.PN ---
Subjective - Date & Time of Evaluation Date of Evaluation: 06/11/18 Time of Evaluation: 19:20 - Subjective Subjective: Podiatry Progress Note for Dr. Mcnair 68M seen and evaluated with Dr. Mcnair for infected, gangrenous right fourth toe. Patient is AAO x 3 and NAD, resting comfortably in bed. States that pain in the toe is well controlled. Denies any acute overnight events or new pedal complaints at this time. Denies any recent N/V/F/C/CP/SOB/D/posterior calf pain when squeezed. Per Dr. Mcnair, patient will need amputation pending arterial studies Objective - Vital Signs/Intake and Output Vital Signs (last 24 hours): Temp Pulse Resp BP Pulse Ox 98.6 F 89 20 154/73 H 100 06/11/18 16:00 06/11/18 16:00 06/11/18 16:00 06/11/18 16:00 06/11/18 16:00 Intake and Output: 06/11/18 06/12/18 18:59 06:59 Intake Total 1324 Balance 1324 - Medications Medications: Current Medications Heparin Sodium (Porcine) (Heparin) 5,000 units SC Q12 [facility] Last Admin: 06/11/18 10:10 Dose: 5,000 units Clindamycin Phosphate 600 mg/ (Sodium Chloride) 54 mls @ 100 mls/hr IVPB Q8H ERICK PRN Reason: Protocol Last Admin: 06/11/18 12:46 Dose: 100 mls/hr Aztreonam 1 gm/ Sodium (Chloride) 100 mls @ 200 mls/hr IVPB Q8H ERICK PRN Reason: Protocol Last Admin: 06/11/18 13:41 Dose: 200 mls/hr Vancomycin/Sodium Chloride (Vancomycin 1 Gm/Ns 200 Ml) 1 gm in 200 mls @ 100 mls/hr IVPB Q12H ERICK PRN Reason: Protocol Stop: 06/15/18 14:01 Last Admin: 06/11/18 14:59 Dose: 100 mls/hr Insulin Aspart (Novolog) 0 unit SC ACHS ERICK PRN Reason: Protocol Last Admin: 06/11/18 16:30 Dose: 1 units Naproxen (Anaprox Ds) 550 mg PO Q12 [facility] Last Admin: 06/11/18 10:10 Dose: 550 mg Oxycodone/Acetaminophen (Percocet 5/325 Mg Tab) 1 tab PO Q6H PRN PRN Reason: Pain, moderate (4-7) Stop: 06/12/18 23:30 Pantoprazole Sodium (Protonix Ec Tab) 40 mg PO DAILY [facility] Last Admin: 06/11/18 10:10 Dose: 40 mg - Labs Labs: 06/11/18 06:26 06/11/18 06:26 PT 12.2 SECONDS (9.7-12.2) 06/09/18 22:02 INR 1.1 06/09/18 22:02 APTT 32 SECONDS (21-34) 06/09/18 22:02 - Constitutional Appears: Well, Non-toxic, No Acute Distress - Extremities Exam Additional comments: LE focused exam: Vasc: DP/PT 2/4 b/l. Cap refill < 3 sec X 8. Temp gradient warm to cool from proximal to distal. Neuro: Epicritic and protective sensation grossly diminished b/l Derm: Right 4th toe hyperpigmented, edematous and gangrenous. Toe tip has an ulcer 1 X 1 X 1 cm. the ulcer is tracking, probing to bone, positive malodor, positive drainage. Overall, intergrity of digit continues to diminish MSK: No pain on palpating the 4th right toe. Muscle power intact 5/5 in all groups. left 4th toe is amputated. - Neurological Exam Neurological Exam: Alert, Awake, Oriented x3 - Psychiatric Exam Psychiatric exam: Normal Affect, Normal Mood Assessment and Plan - Assessment and Plan (Free Text) Assessment: 68M seen and evaluated for infected, gangrenous right fourth toe Plan: Patient seen and evaluated Plan discussed with Dr. Mcnair Afebrile Continue abx per ID R foot X-ray (06/09): OM of the R 4th digit LE CT: Read pending MIKE-PVR will discuss results with Dr. Mcnair for possible revasc recommendation MRI: Read Pending Venous duplex: Read pending Site dressed with betadine, gauze, kirlix Patient will need amputation of digit. Will f/u with Dr. Mcnair on timeframe Podiatry will continue to follow while patient in house
--- NOTE | 2018-06-11 21:43 | CP.PCM.PN ---
Subjective - Date & Time of Evaluation Date of Evaluation: 06/11/18 Time of Evaluation: 16:00 - Subjective Subjective: dictated Objective - Vital Signs/Intake and Output Vital Signs (last 24 hours): Temp Pulse Resp BP Pulse Ox 98.6 F 89 20 154/73 H 100 06/11/18 16:00 06/11/18 16:00 06/11/18 16:00 06/11/18 16:00 06/11/18 16:00 Intake and Output: 06/11/18 06/12/18 18:59 06:59 Intake Total 1324 Balance 1324 - Medications Medications: Current Medications Heparin Sodium (Porcine) (Heparin) 5,000 units SC Q12 [facility] Last Admin: 06/11/18 10:10 Dose: 5,000 units Clindamycin Phosphate 600 mg/ (Sodium Chloride) 54 mls @ 100 mls/hr IVPB Q8H ERICK PRN Reason: Protocol Last Admin: 06/11/18 12:46 Dose: 100 mls/hr Aztreonam 1 gm/ Sodium (Chloride) 100 mls @ 200 mls/hr IVPB Q8H ERICK PRN Reason: Protocol Last Admin: 06/11/18 13:41 Dose: 200 mls/hr Vancomycin/Sodium Chloride (Vancomycin 1 Gm/Ns 200 Ml) 1 gm in 200 mls @ 100 mls/hr IVPB Q12H ERICK PRN Reason: Protocol Stop: 06/15/18 14:01 Last Admin: 06/11/18 14:59 Dose: 100 mls/hr Insulin Aspart (Novolog) 0 unit SC ACHS ERICK PRN Reason: Protocol Last Admin: 06/11/18 21:31 Dose: Not Given Naproxen (Anaprox Ds) 550 mg PO Q12 [facility] Last Admin: 06/11/18 10:10 Dose: 550 mg Oxycodone/Acetaminophen (Percocet 5/325 Mg Tab) 1 tab PO Q6H PRN PRN Reason: Pain, moderate (4-7) Stop: 06/12/18 23:30 Pantoprazole Sodium (Protonix Ec Tab) 40 mg PO DAILY [facility] Last Admin: 06/11/18 10:10 Dose: 40 mg - Labs Labs: 06/11/18 06:26 06/11/18 06:26 PT 12.2 SECONDS (9.7-12.2) 06/09/18 22:02 INR 1.1 06/09/18 22:02 APTT 32 SECONDS (21-34) 06/09/18 22:02
[2018-06-12] MEDS: Vancomycin 1 gm/NS 200 ml 1 GM/200 ML BAG IVPB SCH ×2 (01:22→14:09)
--- NOTE | 2018-06-12 01:41 | PN ---
Copied To: Feng Granado MD Attending MD: Feng Granado MD DATE: 06/11/2018 INFECTIOUS DISEASE FOLLOWUP REQUESTED BY: Aldo Yepez MD SUBJECTIVE: This patient is afebrile. He offers no acute complaints. He is having worked up for the osteomyelitis, and vascular studies are pending. OBJECTIVE: VITAL SIGNS: T-max is 98.6, pulse 89, blood pressure 154/73, respirations are 20. HEENT: Head is atraumatic, normocephalic. NECK: Supple. LUNGS: Clear. HEART: S1, S2 regular. ABDOMEN: Soft, nontender. No guarding, no rigidity present. EXTREMITIES: He will need amputation after the arterial studies, and he has osteomyelitis of the fourth toe on the right foot, and he has had previous amputation of the left fourth toe. He has venous studies and AVR results were pending. I am going to see if they are back. He had a lower extremity MRI. He went for an MRI and MRI showed gangrene and ulceration of the fourth middle and distal phalanx, and in addition, noted to have developing acute head of the fourth metatarsal suggestive for developing acute osteomyelitis, prominent and edema within the circumferential subcutaneous soft tissue at that level, severe hallux valgus deformity with and reactive osteochondral change noted at the base of the first proximal phalanx, degenerative changes with some mild reactive edema noted at the distal tuft of the first distal phalanx, nonspecific, and there were prominent degenerative changes noted on the second MTP, minimal nonspecific reactive, so we will see what Dr. Mcnair makes out of this, and he also had Doppler studies done, and we will follow. His wound is growing gram-positive and gram-negative. Blood cultures are negative. He is on clindamycin and Azactam at this time and vancomycin also, so he is on lot of antibiotics. We will follow the ID and sensitivity and see what the plan is, first for the vascular and then for the amputation. We will follow, and his Dopplers showed no flow detected at the distal posterior tibial artery. The remaining artery is apparently patent, however, with monophasic wave form beginning at the popliteal artery level so there is some peripheral vascular disease. We will need a vascular eval. We will follow. Feng Granado MD [facility] # [id number]
[2018-06-12] MEDS: Aztreonam 1 GM in Sodium Chloride 0.9% 100 ML IVPB SCH ×3 (05:34→21:33)
--- NOTE | 2018-06-12 05:36 | CP.PCM.CON ---
History of Present Illness - History of Present Illness History of Present Illness: Vascular Surgery Consult note: Dr. Reid 68M with PMHx of HTN,DM, and hypercholestremia presented to [facility] emergency department with complaints of right 4th toe infection and gangrene. Patient states that about two week ago he noted an ulcer on his right fourth toe. Patient reported following up outpatient with podiatry. However, the treatment that was prescribed to him fail. Patient reports he decided to come to ED once he noticed purulent drainage being expressed from toe. He denies any fever, chills, nausea/vomiting, chest pain, SOB. PMH: as stated above PSH: Left 4th toe amputation. Allergies: Penicillins Social Hx: Denies smoking, ETOH or illicit drug use. Review of Systems - Review of Systems Review of Systems: 12 pt ROS negative except as described in HPI Past Patient History - Past Medical History & Family History Past Medical History?: Yes - Past Social History Smoking Status: Never Smoked - CARDIAC Hx Cardiac Disorders: Yes Hx Hypercholesterolemia: Yes Hx Hypertension: Yes - PULMONARY Hx Respiratory Disorders: No - NEUROLOGICAL Hx Neurological Disorder: Yes Other/Comment: dm neuropathy - HEENT Hx HEENT Problems: No - RENAL Hx Chronic Kidney Disease: No - ENDOCRINE/METABOLIC Hx Endocrine Disorders: Yes Hx Diabetes Mellitus Type 2: Yes - HEMATOLOGICAL/ONCOLOGICAL Hx Blood Disorders: No - INTEGUMENTARY Hx Dermatological Problems: Yes Other/Comment: left 4th toe brown discoloration - MUSCULOSKELETAL/RHEUMATOLOGICAL Hx Musculoskeletal Disorders: No Hx Falls: No - GASTROINTESTINAL Hx Gastrointestinal Disorders: No - GENITOURINARY/GYNECOLOGICAL Hx Genitourinary Disorders: No - PSYCHIATRIC Hx Psychophysiologic Disorder: No Hx Substance Use: No - SURGICAL HISTORY Hx Surgeries: No - ANESTHESIA Hx Anesthesia: No Hx Anesthesia Reactions: No Hx Malignant Hyperthermia: No Meds Allergies/Adverse Reactions: Allergies Allergy/AdvReac Type Severity Reaction Status Date / Time Penicillins Allergy Verified 06/09/18 21:47 - Medications Medications: Current Medications Heparin Sodium (Porcine) (Heparin) 5,000 units SC Q12 [facility] Last Admin: 06/11/18 21:44 Dose: 5,000 units Clindamycin Phosphate 600 mg/ (Sodium Chloride) 54 mls @ 100 mls/hr IVPB Q8H [facility] PRN Reason: Protocol Last Admin: 06/12/18 05:34 Dose: 100 mls/hr Aztreonam 1 gm/ Sodium (Chloride) 100 mls @ 200 mls/hr IVPB Q8H [facility] PRN Reason: Protocol Last Admin: 06/12/18 05:34 Dose: 200 mls/hr Vancomycin/Sodium Chloride (Vancomycin 1 Gm/Ns 200 Ml) 1 gm in 200 mls @ 100 mls/hr IVPB Q12H [facility] PRN Reason: Protocol Stop: 06/15/18 14:01 Last Admin: 06/12/18 01:22 Dose: 100 mls/hr Insulin Aspart (Novolog) 0 unit SC ACHS [facility] PRN Reason: Protocol Last Admin: 06/11/18 21:31 Dose: Not Given Naproxen (Anaprox Ds) 550 mg PO Q12 [facility] Last Admin: 06/11/18 21:44 Dose: 550 mg Oxycodone/Acetaminophen (Percocet 5/325 Mg Tab) 1 tab PO Q6H PRN PRN Reason: Pain, moderate (4-7) Stop: 06/12/18 23:30 Pantoprazole Sodium (Protonix Ec Tab) 40 mg PO DAILY [facility] Last Admin: 06/11/18 10:10 Dose: 40 mg Physical Exam - Constitutional Appears: No Acute Distress - Head Exam Head Exam: NORMOCEPHALIC - Eye Exam Eye Exam: EOMI, Normal appearance - ENT Exam ENT Exam: Mucous Membranes Moist - Respiratory Exam Respiratory Exam: NORMAL BREATHING PATTERN - Cardiovascular Exam Cardiovascular Exam: +S1, +S2 - GI/Abdominal Exam GI & Abdominal Exam: Soft - Extremities Exam Additional comments: R 4th toe gangrene Motory/sensation intact foot is warm to touch - Neurological Exam Neurological exam: Alert, Oriented x3 - Psychiatric Exam Psychiatric exam: Normal Mood - Skin Additional comments: ulceration on R 4th toe Results - Vital Signs Recent Vital Signs: Last Vital Signs Temp 97.8 F 06/12/18 00:00 Pulse 76 06/12/18 00:00 Resp 20 06/12/18 00:00 BP 148/66 06/12/18 00:00 Pulse Ox 100 06/12/18 00:00 - Labs Result Diagrams: 06/11/18 06:26 06/11/18 06:26 Labs: Laboratory Results - last 24 hr 06/11/18 06/11/18 06/11/18 06:26 06:26 07:05 WBC 7.5 RBC 4.50 Hgb 13.2 Hct 39.0 MCV 86.7 MCH 29.4 MCHC 33.9 RDW 13.0 Plt Count 206 MPV 10.2 Neut % (Auto) 48.3 L Lymph % (Auto) 21.9 Ritchie % (Auto) 6.8 Eos % (Auto) 22.1 H Baso % (Auto) 0.9 Neut # (Auto) 3.6 Lymph # (Auto) 1.7 Ritchie # (Auto) 0.5 Eos # (Auto) 1.7 H Baso # (Auto) 0.1 Neutrophils % (Manual) 59 Lymphocytes % (Manual) 20 Monocytes % (Manual) 5 Eosinophils % (Manual) 16 H Platelet Estimate Normal Large Platelets Present RBC Morphology Normal ESR 60 H Sodium 141 Potassium 4.8 Chloride 103 Carbon Dioxide 27 Anion Gap 16 BUN 14 Creatinine 1.1 Est GFR ( Amer) > 60 Est GFR (Non-Af Amer) > 60 POC Glucose (mg/dL) 183 H Random Glucose 174 H Calcium 9.1 Total Bilirubin 0.4 AST 18 ALT 15 L D Alkaline Phosphatase 111 Total Protein 7.9 Albumin 4.1 Globulin 3.8 Albumin/Globulin Ratio 1.1 06/11/18 06/11/18 06/11/18 11:08 16:17 21:17 WBC RBC Hgb Hct MCV MCH MCHC RDW Plt Count MPV Neut % (Auto) Lymph % (Auto) Ritchie % (Auto) Eos % (Auto) Baso % (Auto) Neut # (Auto) Lymph # (Auto) Ritchie # (Auto) Eos # (Auto) Baso # (Auto) Neutrophils % (Manual) Lymphocytes % (Manual) Monocytes % (Manual) Eosinophils % (Manual) Platelet Estimate Large Platelets RBC Morphology ESR Sodium Potassium Chloride Carbon Dioxide Anion Gap BUN Creatinine Est GFR ( Amer) Est GFR (Non-Af Amer) POC Glucose (mg/dL) 196 H 185 H 155 H Random Glucose Calcium Total Bilirubin AST ALT Alkaline Phosphatase Total Protein Albumin Globulin Albumin/Globulin Ratio Assessment & Plan - Assessment and Plan (Free Text) Assessment: 68M with vascular insufficiency and R 4th toe gangrene Plan: MIKE- R: 0.61, L: 1.15 Will order CTA Patient may benefit from angiography Podiatry planning toe amputation D/w Jeanette Mcintosh PGY3
--- NOTE | 2018-06-12 07:51 | HP ---
Copied To: Aldo Yepez MD Attending MD: Aldo Yepez MD HISTORY OF PRESENT ILLNESS: The patient is a 68-year-old male with a history of diabetes, hypertension, and history of . The patient came to the emergency room because of complaining of some wound to the left foot. The patient was seen by Dr. Mcnair, the porcelain enamel repairer. admission which was done. The patient had the foot was getting worse. The patient was placed on p.o. antibiotics. ALLERGIES: THE PATIENT IS ALLERGIC TO PENICILLIN. PAST MEDICAL HISTORY: History of diabetes and hypertension. SOCIAL HISTORY: The patient has children. No smoking or alcohol abuse. Has some history of inherited disease. REVIEW OF SYSTEMS: RESPIRATORY SYSTEM: No shortness of breath. CARDIOVASCULAR SYSTEM: Denies any chest pain. GASTROINTESTINAL: No nausea or vomiting. EXTREMITIES: The patient has a bandage to the right foot. PHYSICAL EXAMINATION: GENERAL: The patient is alert, awake and oriented x3, pleasant. VITAL SIGNS: Blood pressure of 144/71, pulse 89, respirations 20, temperature 98.7. NECK: Supple. No JVD. LUNGS: Clear. HEART: Regular rate and rhythm. ABDOMEN: Soft. Nontender. EXTREMITIES: There is a wound to the left foot, and there is palpable pulse at dorsalis . LABORATORY DATA: The patient had some tests done. Labs showed WBC of 9.1, hemoglobin 11.9, hematocrit 35.9, and platelet is 190. Coag showed PT 12.2, INR 1.1, PTT 32. Chemistry: Sodium 139, potassium 4, chloride 102, bicarb 25, BUN 15, creatinine 0.9, glucose 145. AST 14, ALT 21. ASSESSMENT AND PLAN: The patient has . The patient has had x-ray of the lower extremities that showed no appreciated soft tissue edema is appreciated. The patient is admitted with cellulitis of foot and possible osteomyelitis. We are going to order an infectious disease consult. The patient has a consult with Dr. Granado. We will have also a consult with Dr. Mcnair. Doppler of the left lower extremity is ordered. The patient will have an MRI of the left foot. . Aldo Yepez MD
--- NOTE | 2018-06-12 08:10 | PN ---
Copied To: Aldo Yepez MD Attending MD: Aldo Yepez MD DATE: 06/11/2018 SUBJECTIVE: Today, the patient is alert and oriented, in no acute distress. No shortness of breath. No chest pain. PHYSICAL EXAMINATION: VITAL SIGNS: The patient had a blood pressure of , pulse 89, respirations 20, temperature 98.6. NECK: Supple. No JVD. LUNGS: Clear. HEART: Regular rate and rhythm. No murmur. ABDOMEN: Soft. EXTREMITIES: There is a wet gangrene of the fourth toe of the right foot. The pulse is somewhat weak in the right foot. The patient had an MRI of the lower extremities. The MRI revealed prominent soft tissue gas gangrene distribution at the level of the foot and middle and distal phalanges, prominent embolization at the level of the foot, distal, middle and proximal phalanges with decreased T1 signal and signal consistent with acute osteomyelitis. Also, there are prominent degenerative changes at the joint space, reactive edema and osteochondritis changes at the base of the fifth proximal phalanx. PLAN: So, the plan is that we are going to start the patient before we are going to order a surgical consult with Dr. Lalo Newberry and also fluoroscopic evaluation of the foot. Aldo Yepez MD
[2018-06-12] MEDS: (Novolog) Insulin Aspart, Recombinant 100 u/ml 10 ml vial SC SCH ×4 (08:26→21:42)
--- NOTE | 2018-06-12 09:45 | CP.PCM.PN ---
Subjective - Date & Time of Evaluation Date of Evaluation: 06/12/18 Time of Evaluation: 09:40 - Subjective Subjective: Podiatry Progress Note for Dr. Mcnair 68M seen and evaluated with Dr. Mcnair for infected, gangrenous right fourth toe. Patient is AAO x 3 and NAD, resting comfortably in bed. States that pain in the toe is well controlled. Denies any acute overnight events or new pedal complaints at this time. Denies any recent N/V/F/C/CP/SOB/D/posterior calf pain when squeezed. Dr. Mcnair discussed with patient need for amputation of right fourth digit pending results of angiogram and recommendations from Dr. Reid. Patient demonstrates good understanding Objective - Vital Signs/Intake and Output Vital Signs (last 24 hours): Temp Pulse Resp BP Pulse Ox 98.5 F 93 H 20 161/83 H 98 06/12/18 07:42 06/12/18 07:42 06/12/18 07:42 06/12/18 07:42 06/12/18 07:42 Intake and Output: 06/12/18 06/12/18 06:59 18:59 Intake Total 764 Balance 764 - Medications Medications: Current Medications Heparin Sodium (Porcine) (Heparin) 5,000 units SC Q12 [facility] Last Admin: 06/11/18 21:44 Dose: 5,000 units Clindamycin Phosphate 600 mg/ (Sodium Chloride) 54 mls @ 100 mls/hr IVPB Q8H [facility] PRN Reason: Protocol Last Admin: 06/12/18 05:34 Dose: 100 mls/hr Aztreonam 1 gm/ Sodium (Chloride) 100 mls @ 200 mls/hr IVPB Q8H [facility] PRN Reason: Protocol Last Admin: 06/12/18 05:34 Dose: 200 mls/hr Vancomycin/Sodium Chloride (Vancomycin 1 Gm/Ns 200 Ml) 1 gm in 200 mls @ 100 mls/hr IVPB Q12H [facility] PRN Reason: Protocol Stop: 06/15/18 14:01 Last Admin: 06/12/18 01:22 Dose: 100 mls/hr Insulin Aspart (Novolog) 0 unit SC ACHS ERICK PRN Reason: Protocol Last Admin: 06/12/18 08:26 Dose: 1 units Naproxen (Anaprox Ds) 550 mg PO Q12 [facility] Last Admin: 06/11/18 21:44 Dose: 550 mg Oxycodone/Acetaminophen (Percocet 5/325 Mg Tab) 1 tab PO Q6H PRN PRN Reason: Pain, moderate (4-7) Stop: 06/12/18 23:30 Pantoprazole Sodium (Protonix Ec Tab) 40 mg PO DAILY [facility] Last Admin: 06/11/18 10:10 Dose: 40 mg - Labs Labs: 06/11/18 06:26 06/11/18 06:26 PT 12.2 SECONDS (9.7-12.2) 06/09/18 22:02 INR 1.1 06/09/18 22:02 APTT 32 SECONDS (21-34) 06/09/18 22:02 - Constitutional Appears: Well, Non-toxic, No Acute Distress - Extremities Exam Additional comments: LE focused exam: Vasc: DP/PT 2/4 b/l. Cap refill < 3 sec X 8. Temp gradient warm to cool from proximal to distal. Neuro: Epicritic and protective sensation grossly diminished b/l Derm: Right 4th toe hyperpigmented, edematous and gangrenous. Toe tip has an ulcer 1 X 1 X 1 cm. the ulcer is tracking, probing to bone, positive malodor, positive drainage, worsening. Overall, intergrity of digit continues to diminish. No periwound erythema or streaking noted MSK: No pain on palpating the 4th right toe. Muscle power intact 5/5 in all groups. left 4th toe is amputated. - Neurological Exam Neurological Exam: Alert, Awake, Oriented x3 - Psychiatric Exam Psychiatric exam: Normal Affect, Normal Mood Assessment and Plan - Assessment and Plan (Free Text) Assessment: 68M seen and evaluated with Dr. Mcnair for infected, gangrenous right fourth toe Plan: Patient seen and evaluated with Dr. Mcnair Afebrile Continue abx per ID R foot X-ray (06/09): OM of the R 4th digit LE CT: OM/gangrene distal and middle phalanges R 4th digit. Arthritis vs OM 2nd met head. Lateral hindfoot cellulitis extends to level of the ankle MIKE-PVR: No flow detected at the distal posterior tibial artery. Remaining arteries patent w/ monophasic waveforms starting at popliteal artery level Wound cx: GNR, GPC in chains MRI:. Acute OM of proximal, middle and distal phalanx 4th toe and 4th met head CT angio: ordered Per Dr. Mcnair, we will wait for results of angio and he will discuss possible revascularization with Dr. Reid before right fourth toe is amputated Will f/u CT angio Wound dressed with betadine, DSD Podiatry will continue to follow while patient in house
[2018-06-12] MEDS: Naproxen 550 mg Tab PO SCH ×2 (09:57→21:34)
[2018-06-12] MEDS: Pantoprazole 40 mg EC Tab PO SCH (09:57)
--- NOTE | 2018-06-12 10:20 | CP.PCM.CON ---
History of Present Illness - History of Present Illness History of Present Illness: PGY-1 Vasc Surgery note for Dr Reid Patient is seen and examined at bedside. Patient denies any acute events overnight. Patient denies any current complains at this time. Patient is scheduled to go to CT angiography. Past Patient History - Past Medical History & Family History Past Medical History?: Yes - Past Social History Smoking Status: Never Smoked - CARDIAC Hx Cardiac Disorders: Yes Hx Hypercholesterolemia: Yes Hx Hypertension: Yes - PULMONARY Hx Respiratory Disorders: No - NEUROLOGICAL Hx Neurological Disorder: Yes Other/Comment: dm neuropathy - HEENT Hx HEENT Problems: No - RENAL Hx Chronic Kidney Disease: No - ENDOCRINE/METABOLIC Hx Endocrine Disorders: Yes Hx Diabetes Mellitus Type 2: Yes - HEMATOLOGICAL/ONCOLOGICAL Hx Blood Disorders: No - INTEGUMENTARY Hx Dermatological Problems: Yes Other/Comment: left 4th toe brown discoloration - MUSCULOSKELETAL/RHEUMATOLOGICAL Hx Musculoskeletal Disorders: No Hx Falls: No - GASTROINTESTINAL Hx Gastrointestinal Disorders: No - GENITOURINARY/GYNECOLOGICAL Hx Genitourinary Disorders: No - PSYCHIATRIC Hx Psychophysiologic Disorder: No Hx Substance Use: No - SURGICAL HISTORY Hx Surgeries: No - ANESTHESIA Hx Anesthesia: No Hx Anesthesia Reactions: No Hx Malignant Hyperthermia: No Meds Allergies/Adverse Reactions: Allergies Allergy/AdvReac Type Severity Reaction Status Date / Time Penicillins Allergy Verified 06/09/18 21:47 - Medications Medications: Current Medications Heparin Sodium (Porcine) (Heparin) 5,000 units SC Q12 [facility] Last Admin: 06/12/18 09:55 Dose: 5,000 units Clindamycin Phosphate 600 mg/ (Sodium Chloride) 54 mls @ 100 mls/hr IVPB Q8H [facility] PRN Reason: Protocol Last Admin: 06/12/18 05:34 Dose: 100 mls/hr Aztreonam 1 gm/ Sodium (Chloride) 100 mls @ 200 mls/hr IVPB Q8H [facility] PRN Reason: Protocol Last Admin: 06/12/18 05:34 Dose: 200 mls/hr Vancomycin/Sodium Chloride (Vancomycin 1 Gm/Ns 200 Ml) 1 gm in 200 mls @ 100 mls/hr IVPB Q12H [facility] PRN Reason: Protocol Stop: 06/15/18 14:01 Last Admin: 06/12/18 01:22 Dose: 100 mls/hr Insulin Aspart (Novolog) 0 unit SC ACHS [facility] PRN Reason: Protocol Last Admin: 06/12/18 08:26 Dose: 1 units Naproxen (Anaprox Ds) 550 mg PO Q12 [facility] Last Admin: 06/12/18 09:57 Dose: 550 mg Oxycodone/Acetaminophen (Percocet 5/325 Mg Tab) 1 tab PO Q6H PRN PRN Reason: Pain, moderate (4-7) Stop: 06/12/18 23:30 Pantoprazole Sodium (Protonix Ec Tab) 40 mg PO DAILY [facility] Last Admin: 06/12/18 09:57 Dose: 40 mg Results - Vital Signs Recent Vital Signs: Last Vital Signs Temp 98.5 F 06/12/18 07:42 Pulse 93 H 06/12/18 07:42 Resp 20 06/12/18 07:42 BP 161/83 H 06/12/18 07:42 Pulse Ox 98 06/12/18 07:42 - Labs Result Diagrams: 06/11/18 06:26 06/11/18 06:26 Labs: Laboratory Results - last 24 hr 06/11/18 06/11/18 06/11/18 11:08 16:17 21:17 POC Glucose (mg/dL) 196 H 185 H 155 H 06/12/18 07:17 POC Glucose (mg/dL) 191 H
--- NOTE | 2018-06-12 10:24 | CP.PCM.PN ---
Subjective - Date & Time of Evaluation Date of Evaluation: 06/12/18 Time of Evaluation: 10:21 - Subjective Subjective: PGY-1 [facility] Surgery Progress note for Dr. Aaron Patient is seen and examined at bedside. Patient denies any acute events overnight. Patient states feeling well and with no current complains. Patient is to go for CT Angiography today. Objective - Vital Signs/Intake and Output Vital Signs (last 24 hours): Temp Pulse Resp BP Pulse Ox 98.5 F 93 H 20 161/83 H 98 06/12/18 07:42 06/12/18 07:42 06/12/18 07:42 06/12/18 07:42 06/12/18 07:42 Intake and Output: 06/12/18 06/12/18 06:59 18:59 Intake Total 764 Balance 764 - Medications Medications: Current Medications Heparin Sodium (Porcine) (Heparin) 5,000 units SC Q12 [facility] Last Admin: 06/12/18 09:55 Dose: 5,000 units Clindamycin Phosphate 600 mg/ (Sodium Chloride) 54 mls @ 100 mls/hr IVPB Q8H [facility] PRN Reason: Protocol Last Admin: 06/12/18 05:34 Dose: 100 mls/hr Aztreonam 1 gm/ Sodium (Chloride) 100 mls @ 200 mls/hr IVPB Q8H [facility] PRN Reason: Protocol Last Admin: 06/12/18 05:34 Dose: 200 mls/hr Vancomycin/Sodium Chloride (Vancomycin 1 Gm/Ns 200 Ml) 1 gm in 200 mls @ 100 mls/hr IVPB Q12H [facility] PRN Reason: Protocol Stop: 06/15/18 14:01 Last Admin: 06/12/18 01:22 Dose: 100 mls/hr Insulin Aspart (Novolog) 0 unit SC ACHS ERICK PRN Reason: Protocol Last Admin: 06/12/18 08:26 Dose: 1 units Naproxen (Anaprox Ds) 550 mg PO Q12 [facility] Last Admin: 06/12/18 09:57 Dose: 550 mg Oxycodone/Acetaminophen (Percocet 5/325 Mg Tab) 1 tab PO Q6H PRN PRN Reason: Pain, moderate (4-7) Stop: 06/12/18 23:30 Pantoprazole Sodium (Protonix Ec Tab) 40 mg PO DAILY [facility] Last Admin: 06/12/18 09:57 Dose: 40 mg - Labs Labs: 06/11/18 06:26 06/11/18 06:26 PT 12.2 SECONDS (9.7-12.2) 06/09/18 22:02 INR 1.1 06/09/18 22:02 APTT 32 SECONDS (21-34) 06/09/18 22:02 - Constitutional Appears: Well, Non-toxic, No Acute Distress - Head Exam Head Exam: ATRAUMATIC, NORMAL INSPECTION - Eye Exam Eye Exam: EOMI, Normal appearance - ENT Exam ENT Exam: Mucous Membranes Moist - Neck Exam Neck Exam: Full ROM, Normal Inspection - Respiratory Exam Respiratory Exam: NORMAL BREATHING PATTERN. absent: Accessory Muscle Use, Respiratory Distress - GI/Abdominal Exam GI & Abdominal Exam: Soft - Extremities Exam Additional comments: R 4th toe gangrene Motor/sensation intact 4th toe wrapped in dressing - Neurological Exam Neurological Exam: Alert, Awake, Oriented x3 - Psychiatric Exam Psychiatric exam: Normal Affect, Normal Mood - Skin Additional comments: Ulceration on R 4th toe, wrapped in dressing Assessment and Plan - Assessment and Plan (Free Text) Assessment: 68M with vascular insufficiency and R 4th toe gangrene Plan: CTA results - unremarkable CT angiogram of abdomen and pelvis - Plan for angio of right leg tomorrow - NPO at midnight discussed with Dr Jeanette Tolentino, PGY-1
[2018-06-12] MEDS ORDERED: Iodixanol 320 mg/ml 150 ml Bottle IV ONE (11:35)
--- NOTE | 2018-06-12 13:44 | CT ---
Date of service: 06/12/2018 PROCEDURE: CT Angiography Abdomen, Pelvis and Lower Extremity with Contrast HISTORY: Vascular insufficiency, gangrene R 4th toe COMPARISON: None available. TECHNIQUE: Technique: CT angiography of the abdomen, pelvis and bilateral lower extremities performed in the arterial phase of enhancement. Coronal and sagittal reformats, and well as rotating MIP images of the vessels generated at the workstation. Intravenous contrast dose: 150 milliliters Visipaque 320 Radiation dose: Total exam DLP = 1254.45 MGy-cm. This CT exam was performed using one or more of the following dose reduction techniques: Automated exposure control, adjustment of the mA and/or kV according to patient size, and/or use of iterative reconstruction technique. FINDINGS: CT ANGIOGRAPHY: ABDOMINAL AORTA:: Remarkable MAJOR AORTIC BRANCHES: Celiac [place]: Unremarkable. Superior mesenteric artery: Unremarkable. Inferior mesenteric artery: Unremarkable. Renal arteries: Unremarkable. PELVIC ARTERIES: Right Common Iliac: Unremarkable. Right External Iliac: Unremarkable. Right Internal Iliac: Unremarkable. Left Common Iliac: Unremarkable. Left External Iliac: Unremarkable. Left Internal Iliac: Unremarkable. RIGHT LOWER EXTREMITY ARTERIES: Right Common Femoral: Unremarkable. Right Superficial Femoral: There is a short segment occlusion of the distal SFA. Right Profunda Femoris: Unremarkable. Right Popliteal:Unremarkable. Right Anterior Tibial: Unremarkable. Right Tibioperoneal Trunk: Unremarkable. Right Posterior Tibial: Moderate calcific plaque in the proximal segment limits evaluation. Posterior tibial artery is otherwise patent. Right Peroneal: Unremarkable. Right dorsalis pedis : Unremarkable. LEFT LOWER EXTREMITY ARTERIES: Left Common Femoral: Unremarkable. Left Superficial Femoral: At calcific plaque without significant stenosis. Left Profunda Femoris: Unremarkable. Left Popliteal: Unremarkable. Left Anterior Tibial: Originates from the tibioperoneal trunk. Mild stenosis of the distal segment. Left Tibioperoneal Trunk: Unremarkable. Left Posterior Tibial: Moderate calcific plaque throughout the posterior tibial artery with areas of moderate stenosis in the mid and distal segments. Left Peroneal: Unremarkable. Left Dorsalis pedis: Unremarkable. NON-ANGIOGRAPHIC ASPECT OF THE EXAM: LOWER THORAX: Unremarkable. LIVER: Unremarkable. No gross lesion or ductal dilatation. GALLBLADDER AND BILE DUCTS: Unremarkable. PANCREAS: Unremarkable. No gross lesion or ductal dilatation. SPLEEN: Unremarkable. ADRENALS: Unremarkable. No mass. KIDNEYS AND URETERS: Unremarkable. No hydronephrosis. No solid mass. STOMACH AND BOWEL: Unremarkable. No obstruction. No gross mural thickening. APPENDIX: Normal appendix. PERITONEUM: Unremarkable. No free fluid. No free air. LYMPH NODES: Unremarkable. No enlarged lymph nodes. BLADDER: Unremarkable. REPRODUCTIVE: Unremarkable. BONES: No acute fracture. OTHER FINDINGS: None. IMPRESSION: CT ANGIOGRAM ABDOMEN/PELVIS: 1. Essentially unremarkable CT angiogram of the abdomen pelvis. LEFT LOWER EXTREMITY CT ANGIOGRAM: 1. The common femoral artery, profunda femoral artery, superficial femoral artery are normal. The popliteal artery is unremarkable. 2. Runoff shows anterior tibial are artery originating from the tibioperoneal artery. There is mild stenosis of the distal anterior tibial artery. The peroneal artery is unremarkable. There is moderate calcific plaque throughout the posterior tibial artery with multiple areas of moderate stenosis in the mid and distal segments. RIGHT LOWER EXTREMITY CT ANGIOGRAM: 1. There is a short segment occlusion of the distal SFA. Remainder of the SFA is unremarkable. There is reconstitution of popliteal artery which is otherwise unremarkable. 2. Common femoral artery and profunda femoral artery normal. 3. Three-vessel runoff is unremarkable.
--- NOTE | 2018-06-12 16:50 | CARD ---
APPROVED REPORT Date of service: 06/09/2018 EKG Measurement Heart [id number] <Conclusion> Normal sinus rhythm Nonspecific T wave abnormality Abnormal ECG
[2018-06-13] MEDS: Vancomycin 1 gm/NS 200 ml 1 GM/200 ML BAG IVPB SCH ×2 (01:39→15:00)
[2018-06-13] MEDS: Aztreonam 1 GM in Sodium Chloride 0.9% 100 ML IVPB SCH ×3 (05:42→22:31)
[2018-06-13] MEDS: (Novolog) Insulin Aspart, Recombinant 100 u/ml 10 ml vial SC SCH ×4 (07:51→22:09)
[2018-06-13] MEDS ORDERED: Dextrose 5%/0.45% NS 1,000 ML IV SCH (08:00)
--- NOTE | 2018-06-13 08:14 | PN ---
Copied To: Aldo Yepez MD Attending MD: Aldo Yepez MD DATE: 06/12/2018 SUBJECTIVE: The patient is alert and awake. Denies any pain. Today, he has no shortness of breath. No chest pain. PHYSICAL EXAMINATION: VITAL SIGNS: The patient has a blood pressure of 124/62, pulse 82, respiratory rate is 20, and temperature is 98.2. NECK: Supple. LUNGS: Clear. HEART: Regular rate and rhythm. ABDOMEN: Soft and nontender. EXTREMITIES: There is a gangrene of the fourth toe of the right foot. The patient has a CT angio that showed a . There is a short segment occlusion present at the distal SFA. Remainder of the SFA is unremarkable. The plan is that Dr. Reid is going to do intervention for angioplasty, and also the patient will be considered at later date, of the gangrenous toe. The case was reviewed and discussed with Kay Lazaro, the nurse practitioner. MD Soumya Vo 06/12/2018 23:06:15
[2018-06-13] MEDS: Naproxen 550 mg Tab PO SCH ×2 (09:18→21:23)
[2018-06-13] MEDS: Pantoprazole 40 mg EC Tab PO SCH (09:19)
--- NOTE | 2018-06-13 13:33 | CP.PCM.PN ---
Subjective - Date & Time of Evaluation Date of Evaluation: 06/13/18 Time of Evaluation: 13:30 - Subjective Subjective: Podiatry Progress Note for Dr. Mcnair 68M seen and evaluated at bedside for infected, gangrenous right fourth toe. Patient is AAO x 3 and NAD, resting comfortably in bed. States that pain in the toe is well controlled. Denies any acute overnight events or new pedal complaints at this time. States that angiogram went well yesterday and that he is scheduled for an angioplasty this afternoon. Denies any recent N/V/F/C/CP/SOB /D/posterior calf pain when squeezed. Objective - Vital Signs/Intake and Output Vital Signs (last 24 hours): Temp Pulse Resp BP Pulse Ox 98.3 F 84 20 157/77 H 99 06/13/18 07:28 06/13/18 07:28 06/13/18 07:28 06/13/18 07:28 06/13/18 07:28 Intake and Output: 06/13/18 06/13/18 06:59 18:59 Intake Total 714 Balance 714 - Medications Medications: Current Medications Clindamycin Phosphate 600 mg/ (Sodium Chloride) 54 mls @ 100 mls/hr IVPB Q8H ERICK PRN Reason: Protocol Last Admin: 06/13/18 12:45 Dose: 100 mls/hr Aztreonam 1 gm/ Sodium (Chloride) 100 mls @ 200 mls/hr IVPB Q8H ERICK PRN Reason: Protocol Last Admin: 06/13/18 13:29 Dose: Not Given Vancomycin/Sodium Chloride (Vancomycin 1 Gm/Ns 200 Ml) 1 gm in 200 mls @ 100 mls/hr IVPB Q12H ERICK PRN Reason: Protocol Stop: 06/15/18 14:01 Last Admin: 06/13/18 01:39 Dose: 100 mls/hr Dextrose/Sodium Chloride (Dextrose 5%/0.45% Ns 1000 Ml) 1,000 mls @ 50 mls/hr IV .Q20H [facility] Last Admin: 06/13/18 07:52 Dose: 50 mls/hr Insulin Aspart (Novolog) 0 unit SC ACHS ERICK PRN Reason: Protocol Last Admin: 06/13/18 12:30 Dose: Not Given Naproxen (Anaprox Ds) 550 mg PO Q12 [facility] Last Admin: 06/13/18 09:18 Dose: 550 mg Pantoprazole Sodium (Protonix Ec Tab) 40 mg PO DAILY [facility] Last Admin: 06/13/18 09:19 Dose: 40 mg - Labs Labs: 06/11/18 06:26 06/11/18 06:26 PT 12.2 SECONDS (9.7-12.2) 06/09/18 22:02 INR 1.1 06/09/18 22:02 APTT 32 SECONDS (21-34) 06/09/18 22:02 - Constitutional Appears: Well, Non-toxic, No Acute Distress - Extremities Exam Additional comments: LE focused exam: Vasc: DP/PT 2/4 b/l. Cap refill < 3 sec X 8. Temp gradient warm to cool from proximal to distal. Neuro: Epicritic and protective sensation grossly diminished b/l Derm: Right 4th toe hyperpigmented, edematous and gangrenous. Toe tip has an ulcer 1 X 1 X 1 cm. The ulcer is tracking, probing to bone, positive worsening malodor, positive drainage, worsening. Overall, intergrity of digit continues to diminish. No periwound erythema or streaking noted MSK: No pain on palpating the 4th right toe. Muscle power intact 5/5 in all groups. left 4th toe is amputated. - Neurological Exam Neurological Exam: Alert, Awake, Oriented x3 - Psychiatric Exam Psychiatric exam: Normal Affect, Normal Mood Assessment and Plan - Assessment and Plan (Free Text) Assessment: 68M seen and evaluated at bedside for infected, gangrenous right fourth toe Plan: Patient seen and evaluated Plan discussed with Dr. Mcnair Afebrile Continue abx per ID R foot X-ray (06/09): OM of the R 4th digit LE CT: OM/gangrene distal and middle phalanges R 4th digit. Arthritis vs OM 2nd met head. Lateral hindfoot cellulitis extends to level of the ankle MIKE-PVR: No flow detected at the distal posterior tibial artery. Remaining arteries patent w/ monophasic waveforms starting at popliteal artery level Wound cx: Pseudomonas Aeruginosa, Enterococcus Faecalis MRI:. Acute OM of proximal, middle and distal phalanx 4th toe and 4th met head CT angio: Essentially unremarkable CT angiogram of the abdomen pelvis Left: Mild stenosis of the distal anterior tibial artery. Moderate calcific plaque throughout the posterior tibial artery with multiple areas of moderate stenosis in the mid and distal segments. Right: Short segment occlusion of the distal SFA Patient for angioplasty with Dr. Reid today Tentatively scheduled for amputation of right fourth digit on 06/14 at 7:[address] Mcnair pending cardiac clearance from Dr. Linn who has been made aware Echocardiogram ordered Pt on Eloquis, PT/PTT/INR ordered NPO past midnight except meds Wound dressed with betadine, DSD for time being Podiatry will continue to follow while patient in house
[2018-06-13 13:44] LABS: HEMOGLOBIN 12.6 g/dL (12.0-18.0); MEAN CELL VOLUME 86.5 fL (80.0-94.0); MEAN CORPUSCULAR HEMOGLOBIN 28.8 pg (27.0-31.0); MEAN CORPUSCULAR HGB CONC 33.3 g/dL (33.0-37.0); MEAN PLATELET VOLUME 10.2 fL (7.2-11.7); RBC 4.38 Mil/uL (4.40-5.90); RED CELL DISTRIBUTION WIDTH 13.2 % (11.5-14.5); WHITE BLOOD COUNT 7.5 K/uL (4.8-10.8)
[2018-06-13] MEDS ORDERED: Iodixanol 320 MG/ML 100 ML BOTTLE IV ONE ×2 (13:49→14:49)
[2018-06-13] MEDS ORDERED: Iodixanol 320 MG/ML 200 ML BOTTLE IV ONE (13:49)
[2018-06-13 13:51] LABS: BLOOD UREA NITROGEN 17 mg/dL (9-20); CALCIUM 9.6 mg/dl (8.6-10.4); GFR NON-AFRICAN AMERICAN > 60
[2018-06-13] MEDS ORDERED: Midazolam 2 MG/2 ML VIAL ONE (14:07)
[2018-06-13] MEDS ORDERED: Propofol 10 mg/ml Inj (20 ML) ONE (14:08)
[2018-06-13] MEDS ORDERED: Lidocaine 2% MPF (5 ml) Inj ONE (14:23)
--- NOTE | 2018-06-13 15:50 | PCM.SURG1 ---
Surgeon's Initial Post Op Note - Surgeon's Notes Surgeon: maira [employer] Installer: o Type of Anesthesia: IV Sedation Anesthesia Administered By: supa lipscomb Pre-Operative Diagnosis: gangrene Operative Findings: proximal popliteal occlusion Post-Operative Diagnosis: same Operation Performed: aortofemoral angiogram. selective catherization of right femoral artery. pathway atherectomy and DCBAngioplasty with 6mm balloon. perclose left Specimen/Specimens Removed: 0 Estimated Blood Loss: EBL {In ML}: 25 Blood Products Given: N/A Drains Used: No Drains Post-Op Condition: Good Date of Surgery/Procedure: 06/13/18 Time of Surgery/Procedure: 15:52
--- NOTE | 2018-06-14 00:44 | PN ---
Copied To: Aldo Yepez MD Attending MD: Aldo Yepez MD DATE: 06/13/2018 SUBJECTIVE: Today, the patient is alert and awake. No shortness of breath. No chest pain. No palpitation. PHYSICAL EXAMINATION: VITAL SIGNS: The patient has a blood pressure of 157/77, pulse 84, respirations 10-20, and temperature is 98.3. NECK: Supple. No JVD. LUNGS: Clear. HEART: Regular rate and rhythm. ABDOMEN: Soft. EXTREMITIES: There is gangrene in the fourth toe and pedal pulse is somewhat weaker on the right than the left. PLAN: The plan is that the patient is going to have an angioplasty today and has angioplasty done by Dr. Reid, which was successful, so the patient will have amputation of the fourth toe due to osteomyelitis and gangrene, so we are going to review the case with the end packer. Aldo Yepez MD
--- NOTE | 2018-06-14 01:28 | CON ---
Copied To: Karthik Linn MD Attending MD: Karthik Linn MD DATE: 06/13/2018 CARDIOLOGY CONSULTATION REASON FOR CONSULTATION: Preoperative evaluation. HISTORY OF PRESENT ILLNESS: The patient is a 68-year-old male who was admitted four days ago on 06/09/2018 with right foot infection. The patient has swelling of right fourth toe and was earlier evaluated by Dr. Mcnair, the head bookkeeper, and was evaluated by Dr. 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 The patient does not recall any specific injury and has no prior history of foot infection. The patient is unaware of any prior cardiac history and denies any history of chest pain in the past. SOCIAL HISTORY: The patient is nonsmoker. 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 MEDICATIONS: Anaprox 550 mg p.o. twice a day, aztreonam 1 g intravenously every 8 hours, clindamycin 600 mg intravenously every 8 hours, vancomycin 1 g intravenously every 12 hours. REVIEW OF SYSTEMS: No vomiting or diarrhea. No dizziness or syncope. No retrosternal chest pain. PHYSICAL EXAMINATION: GENERAL: The patient is an elderly male who does not appear to be in any distress. VITAL SIGNS: Blood pressure 157/77, heart rate 84, temperature 98.3, respirations 20. HEENT: Normocephalic. NECK: No JVD. CHEST: Clear. HEART: S1 and S2 regular. EXTREMITIES: No edema. LABORATORY DATA: CBC: WBC 7.5, hemoglobin 13.2, hematocrit 39, platelet count 206,000. SMA-7 showed normal sodium 141, potassium 4.8, chloride 103, CO2 of 27, glucose 174, BUN 14, creatinine 1.1. EKG revealed sinus rhythm at the rate of 82 with nonspecific Q-wave changes. Abdominal angiography performed yesterday. Essentially unremarkable CT angiogram of the abdomen and pelvis. Lower extremity CT angiogram: The common femoral artery, profunda femoral artery, superficial femoral artery are normal on the left side. The popliteal artery is unremarkable. Runoff shows anterior tibial artery originating from the tibiofemoral artery. There is mild stenosis of the distal anterior tibial artery. The peroneal artery is unremarkable. There is moderate calcified throughout the posterior tibial artery with multiple areas of moderate stenosis in the mid and distal segments. Right lower extremity CT angiogram, there is a short segment occlusion of the distal superficial femoral artery, the remainder of superficial femoral artery unremarkable. There is reconstitution of the popliteal artery which is otherwise unremarkable. Common femoral artery and profunda femoral arteries are normal. Three-vessel runoff unremarkable. Lower extremity CT scan with contrast: Osteomyelitis/gangrene distal and middle phalanges, right fourth digit. Nonspecific erosive changes at the head of second metatarsal bone may reflect depositional arthritis or potential osteomyelitis. ASSESSMENT: 1. Short segmental occlusion of the distal right superficial femoral artery with osteomyelitis/gangrene distal and mid phalanges of the fourth digit. 2. Diabetes mellitus. RECOMMENDATIONS: Continue current intravenous vancomycin, intravenous clindamycin, and intravenous aztreonam. Obtain an echocardiograph study. If the echo study cannot be done prior to the scheduled toe amputations, the patient can undergo his toe surgery with close preoperative blood pressure monitoring and postoperative telemetry monitoring. I would start Coreg at 3.125 mg orally twice a day. Karthik Linn MD
[2018-06-14] MEDS: Vancomycin 1 gm/NS 200 ml 1 GM/200 ML BAG IVPB SCH ×2 (02:05→14:39)
[2018-06-14] MEDS: Aztreonam 1 GM in Sodium Chloride 0.9% 100 ML IVPB SCH ×3 (05:50→20:53)
[2018-06-14 07:38] LABS: ALBUMIN 3.4 g/dL (3.5-5.0); ALT/SGPT 70 U/L (21-72); AST/SGOT 71 U/L (17-59); BLOOD UREA NITROGEN 14 mg/dL (9-20); CALCIUM 8.9 mg/dl (8.6-10.4); GFR NON-AFRICAN AMERICAN > 60
[2018-06-14] MEDS: (Novolog) Insulin Aspart, Recombinant 100 u/ml 10 ml vial SC SCH ×4 (07:53→21:32)
--- NOTE | 2018-06-14 07:56 | OP ---
Copied To: Ha Reid Jr., MD Attending MD: Ha Reid Jr., MD PROCEDURE DATE: 06/13/2018 PREOPERATIVE DIAGNOSIS: Gangrene, right foot. POSTOPERATIVE DIAGNOSIS: Gangrene, right foot. PROCEDURES CARRIED OUT: 1. Aortofemoral angiogram via left groin with selective catheterization of right femoral artery. 2. Pathway atherectomy. 3. Balloon angioplasty using a drug-coated Lutonix balloon 6 mm of the right proximal popliteal artery. SURGEON: Ha Reid Jr., MD ASSISTANTS: None. ANESTHESIOLOGIST: Bj Newby CRNA ANESTHESIA: Local with sedation. INDICATIONS: The patient is a 68-year-old male with a gangrene of the right great toe. OPERATIVE FINDINGS: 1. The aorta and renal arteries are free of significant occlusive disease. Both common internal and external iliac arteries are widely patent. Both common femoral arteries, profunda femoris arteries, superficial femoral arteries are widely patent. On the left side, I continued down to the trifurcation and detailed pictures below the trifurcation were not taken on the left side. On the right side, there was an occlusion of the proximal popliteal artery beginning at Chriss's canal and extending to above the knee joint, but not passing over the knee joint. Below this, there were two vessel run off, primarily through the anterior tibial artery, but also through the peroneal artery. PROCEDURE AND FINDINGS: Subsequent to the performance of diagnostic arteriogram, a Stiff-angled guidewire was advanced over the aortic bifurcation and a 7-Cymraes sheath positioned in the proximal portion of the superficial femoral artery. Using road mapping techniques and an 0.014 wire, this lesion was crossed. This was heparinized, and then an atherectomy device of 2.4 was then carried out in the proximal popliteal artery and then a 6 mm drug-coated Lutonix balloon was then deployed here. The final cosmetic result was excellent. The Perclose device was then deployed in the left groin. OPERATION CARRIED OUT: Aortofemoral angiogram via the left groin with selective catheterization of right femoral artery, Pathway atherectomy, and drug-coated balloon angioplasty of the right proximal popliteal artery. Ha Reid Jr., [facility]: MD Dr. Tabby Vo
--- NOTE | 2018-06-14 08:11 | CP.PCM.PN ---
Subjective - Date & Time of Evaluation Date of Evaluation: 06/14/18 Time of Evaluation: 08:09 - Subjective Subjective: Surgery: Dr. Reid Pt seen and examined. Resting comfortably in bed. No acute events overnight. No complaints of pain. Objective - Vital Signs/Intake and Output Vital Signs (last 24 hours): Temp Pulse Resp BP Pulse Ox 97.7 F 81 20 156/79 H 99 06/14/18 07:26 06/14/18 07:26 06/14/18 07:26 06/14/18 07:26 06/14/18 07:26 Intake and Output: 06/14/18 06/14/18 06:59 18:59 Intake Total 1000 Balance 1000 - Medications Medications: Current Medications Aspirin (Aspirin Chewable) 81 mg PO DAILY [facility] Carvedilol (Coreg) 3.125 mg PO BID [facility] Last Admin: 06/13/18 17:20 Dose: 3.125 mg Clopidogrel Bisulfate (Plavix) 75 mg PO DAILY [facility] Clindamycin Phosphate 600 mg/ (Sodium Chloride) 54 mls @ 100 mls/hr IVPB Q8H ERICK PRN Reason: Protocol Last Admin: 06/14/18 05:00 Dose: 100 mls/hr Aztreonam 1 gm/ Sodium (Chloride) 100 mls @ 200 mls/hr IVPB Q8H ERICK PRN Reason: Protocol Last Admin: 06/14/18 05:50 Dose: 200 mls/hr Vancomycin/Sodium Chloride (Vancomycin 1 Gm/Ns 200 Ml) 1 gm in 200 mls @ 100 mls/hr IVPB Q12H ERICK PRN Reason: Protocol Stop: 06/15/18 14:01 Last Admin: 06/14/18 02:05 Dose: 100 mls/hr Insulin Aspart (Novolog) 0 unit SC ACHS ERICK PRN Reason: Protocol Last Admin: 06/14/18 07:53 Dose: 1 units Naproxen (Anaprox Ds) 550 mg PO Q12 [facility] Last Admin: 06/13/18 21:23 Dose: 550 mg Pantoprazole Sodium (Protonix Ec Tab) 40 mg PO DAILY [facility] Last Admin: 06/13/18 09:19 Dose: 40 mg - Labs Labs: 06/13/18 13:19 06/14/18 06:35 PT 12.2 SECONDS (9.7-12.2) 06/09/18 22:02 INR 1.1 06/09/18 22:02 APTT 32 SECONDS (21-34) 06/09/18 22:02 - Constitutional Appears: Non-toxic, No Acute Distress - Head Exam Head Exam: ATRAUMATIC, NORMOCEPHALIC - Eye Exam Eye Exam: EOMI - ENT Exam ENT Exam: Mucous Membranes Moist - Neck Exam Neck Exam: Full ROM - Respiratory Exam Respiratory Exam: NORMAL BREATHING PATTERN. absent: Accessory Muscle Use, Respiratory Distress - GI/Abdominal Exam GI & Abdominal Exam: Soft. absent: Tenderness - Extremities Exam Additional comments: R foot Dressing in place, palpable PT, L groin, dressing in place, C/D/I - Neurological Exam Neurological Exam: Alert, Awake, Oriented x3 Assessment and Plan - Assessment and Plan (Free Text) Assessment: 68M w. Gangrene R 4th toe, s/p angio w. arthrectomy/angioplasty, POD#1 -no further vascular intervention at this time -please reconsult if needed -d/w attending Mayito PGY4
[2018-06-14] MEDS: Naproxen 550 mg Tab PO SCH ×2 (10:09→21:29)
[2018-06-14] MEDS: Pantoprazole 40 mg EC Tab PO SCH (10:09)
--- NOTE | 2018-06-14 11:08 | CP.PCM.PN ---
Subjective - Date & Time of Evaluation Date of Evaluation: 06/14/18 Time of Evaluation: 11:05 - Subjective Subjective: Podiatry Progress Note for Dr. Mcnair 68M seen and evaluated at bedside for infected, gangrenous right fourth toe with Dr. Mcnair. Patient is AAO x 3 and NAD, resting comfortably in bed. States that pain in the toe is well controlled. Denies any acute overnight events or new pedal complaints at this time. Denies any recent N/V/F/C/CP/SOB/D/ posterior calf pain when squeezed. Patient is aware that he will have partial fourth ray amputation tomorrow AM Objective - Vital Signs/Intake and Output Vital Signs (last 24 hours): Temp Pulse Resp BP Pulse Ox 97.7 F 81 20 156/79 H 99 06/14/18 07:26 06/14/18 07:26 06/14/18 07:26 06/14/18 07:26 06/14/18 07:26 Intake and Output: 06/14/18 06/14/18 06:59 18:59 Intake Total 1000 Balance 1000 - Medications Medications: Current Medications Aspirin (Aspirin Chewable) 81 mg PO DAILY [facility] Last Admin: 06/14/18 10:09 Dose: 81 mg Carvedilol (Coreg) 3.125 mg PO BID [facility] Last Admin: 06/14/18 10:09 Dose: 3.125 mg Clopidogrel Bisulfate (Plavix) 75 mg PO DAILY [facility] Last Admin: 06/14/18 10:09 Dose: 75 mg Clindamycin Phosphate 600 mg/ (Sodium Chloride) 54 mls @ 100 mls/hr IVPB Q8H ERICK PRN Reason: Protocol Last Admin: 06/14/18 05:00 Dose: 100 mls/hr Aztreonam 1 gm/ Sodium (Chloride) 100 mls @ 200 mls/hr IVPB Q8H ERICK PRN Reason: Protocol Last Admin: 06/14/18 05:50 Dose: 200 mls/hr Vancomycin/Sodium Chloride (Vancomycin 1 Gm/Ns 200 Ml) 1 gm in 200 mls @ 100 mls/hr IVPB Q12H ERICK PRN Reason: Protocol Stop: 06/15/18 14:01 Last Admin: 06/14/18 02:05 Dose: 100 mls/hr Insulin Aspart (Novolog) 0 unit SC ACHS ERICK PRN Reason: Protocol Last Admin: 06/14/18 07:53 Dose: 1 units Naproxen (Anaprox Ds) 550 mg PO Q12 [facility] Last Admin: 06/14/18 10:09 Dose: 550 mg Pantoprazole Sodium (Protonix Ec Tab) 40 mg PO DAILY [facility] Last Admin: 06/14/18 10:09 Dose: 40 mg - Labs Labs: 06/13/18 13:19 06/14/18 06:35 PT 12.2 SECONDS (9.7-12.2) 06/09/18 22:02 INR 1.1 06/09/18 22:02 APTT 32 SECONDS (21-34) 06/09/18 22:02 - Constitutional Appears: Well, Non-toxic, No Acute Distress - Extremities Exam Additional comments: LE focused exam: Vasc: DP/PT 2/4 b/l. Cap refill < 3 sec X 8. Temp gradient warm to cool from proximal to distal. Neuro: Epicritic and protective sensation grossly diminished b/l Derm: Right 4th toe hyperpigmented, edematous and gangrenous, worsening. Toe tip has an ulcer 1 X 1 X 1 cm. The ulcer is tracking, probing to bone, positive worsening malodor, positive drainage, worsening. Overall, intergrity of digit continues to diminish. No periwound erythema or streaking noted MSK: No pain on palpating the 4th right toe. Muscle power intact 5/5 in all groups. left 4th toe is amputated. - Neurological Exam Neurological Exam: Alert, Awake, Oriented x3 - Psychiatric Exam Psychiatric exam: Normal Affect, Normal Mood Assessment and Plan - Assessment and Plan (Free Text) Assessment: 68M seen and evaluated at bedside for infected, gangrenous right fourth toe with Dr. Mcnair Plan: Patient seen and evaluated with Dr. Mcnair Afebrile Continue abx per ID R foot X-ray (06/09): OM of the R 4th digit LE CT: OM/gangrene distal and middle phalanges R 4th digit. Arthritis vs OM 2nd met head. Lateral hindfoot cellulitis extends to level of the ankle MIKE-PVR: No flow detected at the distal posterior tibial artery. Remaining arteries patent w/ monophasic waveforms starting at popliteal artery level Wound cx: Pseudomonas Aeruginosa, Enterococcus Faecalis MRI:. Acute OM of proximal, middle and distal phalanx 4th toe and 4th met head CT angio: Essentially unremarkable CT angiogram of the abdomen pelvis Left: Mild stenosis of the distal anterior tibial artery. Moderate calcific plaque throughout the posterior tibial artery with multiple areas of moderate stenosis in the mid and distal segments. Right: Short segment occlusion of the distal SFA Patient underwent Echo today Per Dr. Cordero, patient is cardiovascularly optimized for surgery tomorrow Patient to have ampuation of right fourth digit and metatarsal head in AM with Dr. Tabby CORREA after midnight except meds Wound dressed with Betadine, DSD today Podiatry will continue to follow
--- NOTE | 2018-06-14 15:00 | CP.PCM.PCO ---
Physician Communication Note - Physician Communication Note Physician Communication Note: Patient medically cleared for toe amputation as per Dr. Yepez
--- NOTE | 2018-06-14 15:56 | CP.PCM.PCO ---
Physician Communication Note - Physician Communication Note Physician Communication Note: OK with Rt.4th toe amputation cardiacwise
--- NOTE | 2018-06-14 20:33 | PN ---
Copied To: Karthik Linn MD Attending MD: Karthik Linn MD DATE: 06/14/2018 SUBJECTIVE: The patient denies any chest pain. PHYSICAL EXAMINATION: VITAL SIGNS: Blood pressure 156/79, heart rate 81, temperature 97.7, and respirations 20. HEENT: Normocephalic. CHEST: Clear. HEART: S1 and S2 regular. EXTREMITIES: Dressings applied to the right foot. LABORATORY DATA: Today's SMA-7 is within normal limits except for glucose . The patient underwent successful stenting due to occlusion of the distal right superficial femoral artery. I did review the echocardiographic study, which is done today which revealed normal ejection fraction. ASSESSMENT: 1. Peripheral vascular disease, status post right superficial femoral artery stenting. 2. Gangrenous changes of the right fourth toe. 3. Diabetes mellitus. RECOMMENDATIONS: The patient can undergo right fourth toe amputation from the cardiac point of view with postoperative telemetry monitoring. Karthik Linn MD
[2018-06-15] MEDS ORDERED: Dextrose 5%/0.45% NS 1,000 ML IV SCH
--- NOTE | 2018-06-15 00:42 | PN ---
Copied To: Aldo Yepez MD Attending MD: Aldo Yepez MD DATE: 06/14/2018 SUBJECTIVE: Today, the patient is alert and awake. He denied any pain. No shortness of breath. No chest pain. No palpitation. No dizziness. The patient has good appetite. PHYSICAL EXAMINATION: VITAL SIGNS: Blood pressure is 160/77, pulse 78, respirations 20, and temperature 97.5. NECK: Supple. No JVD. EXTREMITIES: Negative except for the foot that there was gangrene of fourth toe of the right foot. LABORATORY DATA: Lab showed that WBC is 7.5, hemoglobin 12.6, hematocrit 37.9, and platelets 233. Chemistry has shown that sodium 137, potassium 4.2, chloride 101, bicarb 27, BUN 14, creatinine 1, and glucose 213. ASSESSMENT AND PLAN: The patient is scheduled for amputation of the fourth toe tomorrow. The patient is medically cleared by me and also by Dr. Linn, the java web user interface developer. The case was discussed and reviewed with Kay Lazaro, the nurse practitioner. Aldo Yepez MD
[2018-06-15] MEDS: Vancomycin 1 gm/NS 200 ml 1 GM/200 ML BAG IVPB SCH ×2 (01:08→14:01)
[2018-06-15] MEDS: Aztreonam 1 GM in Sodium Chloride 0.9% 100 ML IVPB SCH ×3 (04:47→21:16)
[2018-06-15] MEDS ORDERED: Bupivacaine 0.25% 20 ML INJ IJ ONE (07:21)
[2018-06-15] MEDS ORDERED: Lidocaine 1% 20 MG/2 ML PF AMP ONE ×2 (07:21→07:31)
[2018-06-15] MEDS ORDERED: Midazolam 2 MG/2 ML VIAL ONE (07:34)
[2018-06-15] MEDS ORDERED: Propofol 10 mg/ml Inj (20 ML) ONE (07:34)
[2018-06-15] MEDS ORDERED: Propofol 10 mg/ml 1,000 MG/100 ML VIAL ONE (07:37)
[2018-06-15] MEDS: (Novolog) Insulin Aspart, Recombinant 100 u/ml 10 ml vial SC SCH ×4 (08:21→22:06)
[2018-06-15] MEDS ORDERED: HYDROmorphone 0.5 mg/0.5 ml ISec IVP PRN (08:28)
[2018-06-15] MEDS ORDERED: Oxycodone/Acetaminophen 5/325 mg Tab PO PRN ×2 (08:29)
--- NOTE | 2018-06-15 08:29 | PCM.SURG1 ---
Surgeon's Initial Post Op Note - Surgeon's Notes Surgeon: Dr. Mcnair, DPM Social Media Community Manager: Dr. Mullen PGY2, Dr. Ybarra PGY1 Type of Anesthesia: IV Sedation, Local Anesthesia Administered By: Dr. José Pre-Operative Diagnosis: Right 4th digit gangrene and osteomyelitis, Right 4th metatarsal head osteomyelitis Operative Findings: see dictation. I: 20 cc 1:1 mixture of 1% Lidocaine plain and 0.25% Marcaine plain. M: 3-0 Vicryl, 4-0 Nylon Post-Operative Diagnosis: Right 4th digit gangrene and osteomyelitis, Right 4th metatarsal head osteomyelitis Operation Performed: Right 4th Partial Ray Amputation Specimen/Specimens Removed: 1. Right 4th digit. 2. Proximal Margin- Right 4th metatarsal head. 3. Bone culture of Right 4th metatarsal head Estimated Blood Loss: EBL {In ML}: 10 Blood Products Given: N/A Drains Used: No Drains Post-Op Condition: Good Date of Surgery/Procedure: 06/15/18 Time of Surgery/Procedure: 08:30
--- NOTE | 2018-06-15 10:08 | CARD ---
APPROVED REPORT Date of service: 06/14/2018 EXAM: Two-dimensional and M-mode echocardiogram with Doppler and color Doppler. Other Information Quality : GoodRhythm : INDICATION Pre-Op RISK FACTORS Diabetes 2D DIMENSIONS IVSd1.1 (0.7-1.1cm)LVDd4.0 (3.9-5.9cm) PWd1.0 (0.7-1.1cm)LVDs2.8 (2.5-4.0cm) FS (%) 31.5 %LVEF (%)59.9 (>50%) M-Mode DIMENSIONS RVDd1.24 (2.1-3.2cm)Left Atrium (MM)2.51 (2.5-4.0cm) IVSd0.65 (0.7-1.1cm)Aortic Root3.06 (2.2-3.7cm) LVDd4.88 (4.0-5.6cm)Aortic Cusp Exc.1.42 (1.5-2.0cm) PWd0.65 (0.7-1.1cm)FS (%) 27 % LVDs3.55 (2.0-3.8cm)TAPSE2.0 cm LVEF (%)57 (>50%) Mitral Valve MV E Dqqvvtid02.4cm/sMV A Zyklhcbo02.8cm/sE/A ratio0.6 TDI E/Lateral E'0.0E/Medial E'0.0 Tricuspid Valve TR Peak Zodkzals063gt/sTR Peak Gr.17qvCrHBRE62fbWh LEFT VENTRICLE The left ventricle is normal size. There is normal left ventricular wall thickness. The left ventricular function is normal. The left ventricular ejection fraction is within the normal range. No regional wall motion abnormalities noted. Transmitral Doppler flow pattern is Grade I-abnormal relaxation pattern. No left ventricle thrombus noted on this study. There is no ventricular septal defect visualized. There is no left ventricular aneurysm. There is no mass noted in the left ventricle. RIGHT VENTRICLE The right ventricle is normal size. There is normal right ventricular wall thickness. The right ventricular systolic function is normal. ATRIA The left atrium size is normal. The right atrium size is normal. The interatrial septum is intact with no evidence for an atrial septal defect. AORTIC VALVE The aortic valve is normal in structure and function. No aortic regurgitation is present. There is no aortic valvular stenosis. There is no aortic valvular vegetation. MITRAL VALVE The mitral valve is normal in structure and function. There is no evidence of mitral valve prolapse. There is no mitral valve stenosis. There is no mitral valve regurgitation noted. TRICUSPID VALVE The tricuspid valve is normal in structure and function. There is mild tricuspid regurgitation. Right ventricular systolic pressure is estimated at 30-40 mmHg. There is no tricuspid valve prolapse or vegetation. There is no tricuspid valve stenosis. PULMONIC VALVE The pulmonary valve is normal in structure and function. There is no pulmonic valvular regurgitation. There is no pulmonic valvular stenosis. GREAT VESSELS The aortic root is normal in size. The ascending aorta is normal in size. The pulmonary artery is normal. The IVC is normal in size and collapses >50% with inspiration. PERICARDIAL EFFUSION The pericardium appears normal. There is no pleural effusion. <Conclusion> The left ventricular function is normal. The left ventricular ejection fraction is within the normal range. No regional wall motion abnormalities noted.
[2018-06-15] MEDS: Naproxen 550 mg Tab PO SCH ×2 (10:46→21:19)
[2018-06-15] MEDS: Pantoprazole 40 mg EC Tab PO SCH (10:46)
--- NOTE | 2018-06-15 11:15 | RAD ---
Date of service: 06/15/2018 PROCEDURE: Right Foot Radiographs. HISTORY: s/p right fourth digit and metatarsal head amp COMPARISON: MRI of right forefoot dated 06/11/2018; right foot radiographs dated 03/04/2018. FINDINGS: BONES: S/p 4th digit distal transmetatarsal amputation. Destructive/erosive changes involving the medial 2nd metatarsal head. Subchondral cysts flanking multiple metatarsophalangeal and interphalangeal joints. JOINTS: Normal. SOFT TISSUES: Postsurgical changes adjacent to the 4th metatarsal. OTHER FINDINGS: None. IMPRESSION: Status post 4th digit distal transmetatarsal amputation with adjacent postsurgical changes. Destructive/ erosive change involving the medial 2nd metatarsal head which may be related to infraction and/or infection.
--- NOTE | 2018-06-15 15:54 | PN ---
Copied To: Karthik Linn MD Attending MD: Karthik Linn MD DATE: 06/15/2018 SUBJECTIVE: The patient underwent right fourth toe amputation. He denies any chest pain or shortness of breath at this time. PHYSICAL EXAMINATION: VITAL SIGNS: Blood pressure 126/71, heart rate 86, temperature 98, and respirations 20. HEENT: Normocephalic. CHEST: Clear. HEART: S1 and S2 regular. EXTREMITIES: No edema. LABORATORY DATA: Today's blood sugar is 244. ASSESSMENT: 1. Status post amputation of gangrenous right fourth toe. 2. Uncontrolled diabetes mellitus. 3. Peripheral vascular disease, status post stenting totally occluded distal right superficial femoral artery. RECOMMENDATIONS: Continue aspirin 81 mg once a day, continue IV Azactam at 1 g every 8 hours, and continue Plavix 75 mg once a day and vancomycin mg intravenously every 12 hours. Obtain 12-lead EKG postoperatively. Karthik Linn MD
[2018-06-15 16:17] VITALS: RESP 20
--- NOTE | 2018-06-15 22:53 | PN ---
Copied To: Aldo Yepez MD Attending MD: Aldo Yepez MD DATE: 06/15/2018 SUBJECTIVE: Today the patient is alert and awake. He had surgery for right fourth digit toe amputation done today. The patient is feeling comfortable at this time. Denies any chest pain or shortness of breath. No dizziness. No palpitation. PHYSICAL EXAMINATION: VITAL SIGNS: The patient has a blood pressure of 148/73, pulse 82, respiration 20 and temperature 97.8. NECK: Supple. No JVD. LUNGS: Clear. HEART: Regular rate and rhythm. ABDOMEN: Soft. EXTREMITIES: There is amputated fourth toe and no bleeding noted. LABORATORY DATA: The lab that was done yesterday showed that the WBC was 7.5, hemoglobin 12.6, hematocrit 37.9 and platelet 233. PLAN: The plan is that we are going to continue antibiotic at this point and the case was discussed with Dr. Granado of [place] and also with the nurse practitioner Kay Lazaro. So, the patient will be ambulatory as much as possible, but we will continue DVT prophylaxis and antibiotic therapy. Discontinue the IV fluid. Aldo Yepez MD
[2018-06-16] MEDS: Aztreonam 1 GM in Sodium Chloride 0.9% 100 ML IVPB SCH ×3 (05:34→20:41)
[2018-06-16 07:38] LABS: BASO # 0.1 K/uL (0.0-0.2); BASO % 1.1 % (0.0-2.0); EOS # 1.1 K/uL (0.0-0.7); EOS % 13.4 % (0.0-4.0); HEMOGLOBIN 11.4 g/dL (12.0-18.0); LYMPH # 1.6 K/uL (1.0-4.3); LYMPH % 19.7 % (20.0-40.0); MEAN CORPUSCULAR HEMOGLOBIN 29.4 pg (27.0-31.0); MEAN CORPUSCULAR HGB CONC 33.4 g/dL (33.0-37.0); MEAN PLATELET VOLUME 10.4 fL (7.2-11.7); MONO # 0.7 K/uL (0.0-0.8); MONO % 9.1 % (0.0-10.0); NEUT # 4.5 K/uL (1.8-7.0); NEUT % 56.7 % (50.0-75.0); RBC 3.88 Mil/uL (4.40-5.90); RED CELL DISTRIBUTION WIDTH 13.6 % (11.5-14.5)
[2018-06-16 07:51] LABS: BLOOD UREA NITROGEN 20 mg/dL (9-20); CALCIUM 9.5 mg/dl (8.6-10.4); GFR NON-AFRICAN AMERICAN > 60
[2018-06-16] MEDS: (Novolog) Insulin Aspart, Recombinant 100 u/ml 10 ml vial SC SCH ×4 (07:53→21:59)
[2018-06-16] MEDS: Pantoprazole 40 mg EC Tab PO SCH (10:04)
[2018-06-16] MEDS: Naproxen 550 mg Tab PO SCH ×2 (10:04→22:09)
--- NOTE | 2018-06-16 15:37 | CP.PCM.PN ---
Subjective - Date & Time of Evaluation Date of Evaluation: 06/16/18 Time of Evaluation: 10:30 - Subjective Subjective: Podiatry Progress Note for Dr. Mcnair: 68 yo male seen and evaluated at bedside s/p 1 day right 4th partial ray amputation with Dr. Mcnair. Patient is resting comfortably in bed and denies any acute overnight events. Denies any other pedal complaints at this time. Denies N /V/F/SOB/CP Objective - Vital Signs/Intake and Output Vital Signs (last 24 hours): Temp Pulse Resp BP Pulse Ox 99.1 F 87 20 160/71 H 98 06/16/18 08:48 06/16/18 08:48 06/16/18 08:48 06/16/18 08:48 06/16/18 08:48 Intake and Output: 06/16/18 06/16/18 06:59 18:59 Intake Total 100 Balance 100 - Medications Medications: Current Medications Acetaminophen (Tylenol 325mg Tab) 650 mg PO Q6 PRN PRN Reason: Pain, Mild (1-3) Aspirin (Aspirin Chewable) 81 mg PO DAILY [facility] Last Admin: 06/16/18 10:04 Dose: 81 mg Carvedilol (Coreg) 3.125 mg PO BID [facility] Last Admin: 06/16/18 10:04 Dose: 3.125 mg Clopidogrel Bisulfate (Plavix) 75 mg PO DAILY [facility] Last Admin: 06/16/18 10:04 Dose: 75 mg Aztreonam 1 gm/ Sodium (Chloride) 100 mls @ 200 mls/hr IVPB Q8H ERICK PRN Reason: Protocol Last Admin: 06/16/18 12:49 Dose: 200 mls/hr Insulin Aspart (Novolog) 0 unit SC ACHS REICK PRN Reason: Protocol Last Admin: 06/16/18 12:49 Dose: 3 units Naproxen (Anaprox Ds) 550 mg PO Q12 ERICK Last Admin: 06/16/18 10:04 Dose: 550 mg Pantoprazole Sodium (Protonix Ec Tab) 40 mg PO DAILY [facility] Last Admin: 06/16/18 10:04 Dose: 40 mg - Labs Labs: 06/16/18 07:09 06/16/18 07:09 PT 12.2 SECONDS (9.7-12.2) 06/09/18 22:02 INR 1.1 06/09/18 22:02 APTT 32 SECONDS (21-34) 06/09/18 22:02 - Constitutional Appears: Well, Non-toxic, No Acute Distress - Head Exam Head Exam: ATRAUMATIC, NORMOCEPHALIC - Extremities Exam Additional comments: Vasc: DP/PT 2/4 b/l, Cap refill < 3 sec X 8, Temp gradient warm to cool from proximal to distal, no edema noted Ortho: Right 4th partial ray amputation, MMT 5/5 in all groups, previous left 5th toe amputation Neuro: Gross sensation diminished, protective sensation absent bilaterally Derm: Surgical site intact with sutures intact and skin edges well coapted. No purulence, no evidence of dehiscence, no clinical signs of infection, no erythema, no evidence of cellulitis - Neurological Exam Neurological Exam: Alert, Awake, Oriented x3 - Psychiatric Exam Psychiatric exam: Normal Affect, Normal Mood Assessment and Plan - Assessment and Plan (Free Text) Assessment: 68 yo male seen and evaluated at bedside s/p 1 day right 4th partial ray amputation Plan: Patient seen and evaluated with Dr. Mcnair Vitals, chart, labs reviewed; afebrile, absent leukocytosis Surgical site dressed with betadine soaked xeroform, and DSD. Continue abx per ID reccs Right x-ray (06/15): s/p 4th digit transmetatarsal amputation with adjacent post surgical changes Patient to remain PWB to right heel with ambulation in surgical shoe Elevate right lower extremity Podiatry will continue to follow while in house
--- NOTE | 2018-06-16 19:56 | PN ---
Copied To: Karthik Linn MD Attending MD: Karthik Linn MD DATE: 06/16/2018 SUBJECTIVE: The patient denies any chest pain. PHYSICAL EXAMINATION: VITAL SIGNS: Blood pressure 160/71, heart rate 87, temperature 99.1, respirations 20. HEENT: Normocephalic. CHEST: Clear. HEART: S1 AND S2 regular. EXTREMITIES: No edema. Yesterday EKG revealed sinus rhythm at 79, nonspecific to the T-wave abnormality. Official echocardiography study report, normal left ventricular function and normal ejection fraction with no regional wall abnormality. ASSESSMENT: 1. Status post right fourth toe amputation. 2. Uncontrolled diabetes mellitus. 3. Status post right superficial femoral artery stenting for total occlusion. RECOMMENDATIONS: Continue aspirin 81 mg once a day, Plavix 75 mg once a day, g intravenously every 8 hours, Coreg 3.125 mg twice a day. Karthik Linn MD
--- NOTE | 2018-06-16 21:20 | PN ---
Copied To: Aldo Yepez MD Attending MD: Aldo Yepez MD DATE: 06/16/2018 SUBJECTIVE: Today, the patient is alert and awake. Denies any pain. No shortness of breath. The patient is day 1 status post amputation of the fourth digit of the right foot. PHYSICAL EXAMINATION: VITAL SIGNS: The patient has a blood pressure of 166/69, pulse 83, temperature 97.8, respiratory rate 20. NECK: Supple. No JVD. LUNGS: Clear. HEART: Regular rate and rhythm. ABDOMEN: Soft. EXTREMITIES: No edema. No cyanosis. There is no bleeding on the right foot and compressive dressing in the right foot. LABORATORY DATA: The lab has shown WBC 8, hemoglobin 11.4, hematocrit 34.1, and platelets 181. ASSESSMENT AND PLAN: Plan is that we are going to continue antibiotic therapy and physical therapy. Aldo Yepez MD
[2018-06-17] MEDS: Aztreonam 1 GM in Sodium Chloride 0.9% 100 ML IVPB SCH ×3 (05:15→22:02)
[2018-06-17] MEDS: (Novolog) Insulin Aspart, Recombinant 100 u/ml 10 ml vial SC SCH ×4 (08:00→22:02)
[2018-06-17] MEDS: Pantoprazole 40 mg EC Tab PO SCH (10:50)
[2018-06-17] MEDS: Naproxen 550 mg Tab PO SCH ×2 (10:50→22:04)
--- NOTE | 2018-06-17 15:02 | CP.PCM.PN ---
Subjective - Date & Time of Evaluation Date of Evaluation: 06/17/18 Time of Evaluation: 14:58 - Subjective Subjective: Podiatry Progress Note for Dr. Mcnair: 68 yo male seen and evaluated at bedside s/p 2 day right 4th partial ray amputation. Patient denies any pain to his right foot. Denies any other pedal complaints at this time. Denies N/V/F/SOB/CP. Objective - Vital Signs/Intake and Output Vital Signs (last 24 hours): Temp Pulse Resp BP Pulse Ox 98.3 F 79 20 138/67 99 06/17/18 08:00 06/17/18 08:00 06/17/18 08:00 06/17/18 08:00 06/17/18 08:00 Intake and Output: 06/17/18 06/17/18 06:59 18:59 Intake Total 300 Balance 300 - Medications Medications: Current Medications Acetaminophen (Tylenol 325mg Tab) 650 mg PO Q6 PRN PRN Reason: Pain, Mild (1-3) Aspirin (Aspirin Chewable) 81 mg PO DAILY [facility] Last Admin: 06/17/18 10:50 Dose: 81 mg Carvedilol (Coreg) 3.125 mg PO BID [facility] Last Admin: 06/17/18 10:50 Dose: 3.125 mg Clopidogrel Bisulfate (Plavix) 75 mg PO DAILY [facility] Last Admin: 06/17/18 10:50 Dose: 75 mg Aztreonam 1 gm/ Sodium (Chloride) 100 mls @ 200 mls/hr IVPB Q8H ERICK PRN Reason: Protocol Last Admin: 06/17/18 14:30 Dose: 200 mls/hr Insulin Aspart (Novolog) 0 unit SC ACHS REICK PRN Reason: Protocol Last Admin: 06/17/18 12:00 Dose: 3 units Naproxen (Anaprox Ds) 550 mg PO Q12 [facility] Last Admin: 06/17/18 10:50 Dose: 550 mg Pantoprazole Sodium (Protonix Ec Tab) 40 mg PO DAILY [facility] Last Admin: 06/17/18 10:50 Dose: 40 mg - Labs Labs: 06/16/18 07:09 06/16/18 07:09 PT 12.2 SECONDS (9.7-12.2) 06/09/18 22:02 INR 1.1 06/09/18 22:02 APTT 32 SECONDS (21-34) 06/09/18 22:02 - Constitutional Appears: Well, Non-toxic, No Acute Distress - Head Exam Head Exam: ATRAUMATIC, NORMOCEPHALIC - Extremities Exam Additional comments: Vasc: DP/PT 2/4 b/l, Cap refill < 3 sec X 8, Temp gradient warm to cool from proximal to distal, no edema noted Ortho: Right 4th partial ray amputation, MMT 5/5 in all groups, previous left 5th toe amputation Neuro: Gross sensation diminished, protective sensation absent bilaterally Derm: Surgical site intact with sutures intact and skin edges well coapted. No purulence, no evidence of dehiscence, no clinical signs of infection, no erythema, no evidence of cellulitis - Neurological Exam Neurological Exam: Alert, Awake, Oriented x3 - Psychiatric Exam Psychiatric exam: Normal Affect, Normal Mood Assessment and Plan - Assessment and Plan (Free Text) Assessment: 68 yo male seen and evaluated s/p 2 days right 4th partial ray amputation Plan: Patient seen and evaluated with Dr. Mcnair Vitals, chart, labs reviewed; afebrile (06/17) Surgical site dressed with betadine soaked xeroform, and DSD. Right x-ray (06/15): s/p 4th digit transmetatarsal amputation with adjacent post surgical changes PWB to right heel with ambulation in surgical shoe as tolerated Patient stable from podiatry stand point Podiatry will continue to follow while in house
--- NOTE | 2018-06-17 22:36 | OP ---
Copied To: Nixon Mullen DPM Attending MD: Ken Mcnair DPM PROCEDURE DATE: 06/15/2018 PATIENT AGE: 68. PATIENT SEX: Male. SURGEON: Ken Mcnair DPM ASSISTANTS: Nixon Mullen DPM, PGY-2 and Wade Ybarra MD ANESTHESIOLOGIST: Molly José MD ANESTHESIA: IV sedation with local. 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 NAME OF PROCEDURE: Right foot partial ray amputation. INDICATION: The patient is 68-year-old male with the above diagnoses. The patient has exhausted all conservative treatment at this time and now requires surgical intervention. The patient signed the consent after careful explanation of risks, benefits, complications, and alternatives for surgical procedure. No guarantees were given or implied. N.p.o. status was confirmed prior to taking the patient to the OR. PREPARATION: The patient was brought into the operating room and placed on the operating room table in a supine position. Time-out was performed for identification of the correct patient and procedure. After induction of IV sedation, the patient received a total of 20 mL of 1:1 mixture of 1% lidocaine plain and 0.25% Marcaine plain in a local block fashion to the base of the right fourth digit. The right lower extremity was then prepped and draped in the normal sterile manner and the procedure began. No tourniquet was used during the procedure. PROCEDURE #1: Attention was then turned to the right fourth digit, which was noted to be edematous and gangrenous with serous drainage. Using #15 blade, a racquet type incision was made down to the level of bone at the base of the fourth digit and carried circumferentially around the base of the fourth digit. The metatarsophalangeal joint was then identified, and a bone clamp was attached to the distal aspect of the right fourth digit. Using the bone clamp and #15 blade, the right fourth digit was disarticulated at the metatarsophalangeal joint and sent to Pathology for pathological examination. A #15 blade and Adson-Brown pickups were then utilized to remove all soft tissue attachments from the fourth metatarsal head, thereby exposing the fourth metatarsal head. An oscillating bone saw was then utilized to excise the fourth metatarsal head, which was also sent to Pathology for examination. A small piece of the metatarsal head was also sent for bone culture. Using a #15 blade, all remaining nonviable soft tissue was debrided and excised from the field. The surgical site was flushed with copious amounts of normal sterile saline. The surgical site was closed with Vicryl suture deep and nylon suture superficially, and all skin was reapproximated appropriately. POSTOPERATIVE CONDITION: The patient tolerated the anesthesia and procedure well and was escorted to the recovery room with vital signs stable and neurovascular status intact to the right lower extremity. The patient is to remain partial weightbearing to the heel in a surgical shoe at all times and is to keep the dressing clean, dry, and intact. Podiatry will continue to follow the patient while he is in-house and upon discharge from the hospital he will follow up with Dr. Mcnair in an outpatient basis. Nixon Mullen DPM Ken Mcnair DPM [id number]
--- NOTE | 2018-06-17 22:39 | CP.PCM.PN ---
Subjective - Date & Time of Evaluation Date of Evaluation: 06/17/18 Time of Evaluation: 14:20 - Subjective Subjective: dictated Objective - Vital Signs/Intake and Output Vital Signs (last 24 hours): Temp Pulse Resp BP Pulse Ox 98.3 F 79 20 138/67 99 06/17/18 08:00 06/17/18 08:00 06/17/18 08:00 06/17/18 08:00 06/17/18 08:00 Intake and Output: 06/17/18 06/18/18 18:59 06:59 Intake Total 300 300 Balance 300 300 - Medications Medications: Current Medications Acetaminophen (Tylenol 325mg Tab) 650 mg PO Q6 PRN PRN Reason: Pain, Mild (1-3) Aspirin (Aspirin Chewable) 81 mg PO DAILY [facility] Last Admin: 06/17/18 10:50 Dose: 81 mg Carvedilol (Coreg) 3.125 mg PO BID [facility] Last Admin: 06/17/18 18:59 Dose: 3.125 mg Clopidogrel Bisulfate (Plavix) 75 mg PO DAILY [facility] Last Admin: 06/17/18 10:50 Dose: 75 mg Aztreonam 1 gm/ Sodium (Chloride) 100 mls @ 200 mls/hr IVPB Q8H ERICK PRN Reason: Protocol Last Admin: 06/17/18 22:02 Dose: 200 mls/hr Insulin Aspart (Novolog) 0 unit SC ACHS ERICK PRN Reason: Protocol Last Admin: 06/17/18 22:02 Dose: Not Given Naproxen (Anaprox Ds) 550 mg PO Q12 [facility] Last Admin: 06/17/18 22:04 Dose: 550 mg Pantoprazole Sodium (Protonix Ec Tab) 40 mg PO DAILY [facility] Last Admin: 06/17/18 10:50 Dose: 40 mg - Labs Labs: 06/16/18 07:09 06/16/18 07:09 PT 12.2 SECONDS (9.7-12.2) 06/09/18 22:02 INR 1.1 06/09/18 22:02 APTT 32 SECONDS (21-34) 06/09/18 22:02
--- NOTE | 2018-06-17 23:00 | PN ---
Copied To: Aldo Yepez MD Attending MD: Aldo Yepez MD DATE: 06/17/2018 SUBJECTIVE: Today, the patient is alert and awake and denied any pain. No tenderness in the leg. No shortness of breath or palpitation. The patient has moved his bowel well. PHYSICAL EXAMINATION: VITAL SIGNS: The patient has a blood pressure of 138/67, pulse 79, respiratory rate 20, temperature 98.3. NECK: Supple. No JVD. LUNGS: Clear. HEART: Regular rate and rhythm. ABDOMEN: Soft, nontender. No palpable mass. EXTREMITIES: There is no edema. of the right foot. The left foot is warm. Pedal pulses are palpable. PLAN: The plan is that they are going to proceed with antibiotic therapy and continue physical therapy. Aldo Yepez MD
--- NOTE | 2018-06-17 23:10 | PN ---
Copied To: Karthik Linn MD Attending MD: Karthik Linn MD DATE: 06/17/2018 SUBJECTIVE: The patient denies any chest pain or shortness of breath. PHYSICAL EXAMINATION: VITAL SIGNS: Blood pressure 138/67, heart rate 79, temperature 98.3, respirations 20. HEENT: Normocephalic. CHEST: Clear. HEART: S1 and S2 are regular. EXTREMITIES: Dressings applied to the right foot. LABORATORY DATA: Today's blood sugars 174 and 166. ASSESSMENT: 1. Peripheral vascular disease, status post stenting to right superficial femoral artery. 2. Status post amputation of the right fourth gangrenous toe. 3. Uncontrolled diabetes mellitus. RECOMMENDATIONS: Continue aspirin 81 mg once a day, Plavix 75 mg once a day, Azactam 1 g intravenously every 8 hours, Coreg 3.125 mg twice a day. Karthik Linn MD
[2018-06-17] MEDS: Ciprofloxacin 400mg/200ml D5W 400 MG/200 ML BAG IVPB SCH (23:51)
[2018-06-17] MEDS: Vancomycin 1 gm/NS 200 ml 1 GM/200 ML BAG IVPB SCH (23:51)
--- NOTE | 2018-06-18 03:31 | PN ---
Copied To: Feng Granado MD Attending MD: Feng Granado MD DATE: 06/17/2018 INFECTIOUS DISEASE FOLLOWUP NOTE SUBJECTIVE: The patient is afebrile. He did say his sugars were running high. He had the surgery because he was going home on Monday. PHYSICAL EXAMINATION: VITAL SIGNS: T-max is 98.3, pulse is 79, blood pressure is 138/67, respiration are 20. HEENT: Head is atraumatic, normocephalic. NECK: Supple. LUNGS: Clear. HEART: S1 and S2 are regular. ABDOMEN: Soft and nontender. No guarding, no rigidity present. EXTREMITIES: Right foot has a dressing at this time. He did have a preop right fourth digit gangrene and osteomyelitis and right fourth metatarsal head osteomyelitis. Postop was that they removed the right fourth digit gangrene and osteomyelitis. They did right fourth partial ray amputation, and they took a bone culture of the right fourth metatarsal also. We are waiting for the reports of the bone culture. Otherwise, the patient is awake, alert. He denies any complaints. Does not feel any pain in the foot. LABORATORY DATA: No new labs today. ASSESSMENT AND PLAN: He is on antibiotics. He is getting Azactam. He is allergic to penicillin, so he is supposed to be on vancomycin. I will renew the vancomycin and give him a stat dose as I feel it was not given today. We will follow. I also want to see the cultures. He had done on 06/10/2018, was Pseudomonas. Pseudomonas was Cipro sensitive, so we can always change to Cipro and give him a vancomycin dose if the creatinine is unremarkable. He had Pseudomonas and Enterococcus faecalis, and they are both Cipro sensitive. He is on Azactam. We do not mention about Azactam, so we will give him Cipro at this time and give him vancomycin. We will follow. Feng Granado MD
[2018-06-18] MEDS: (Novolog) Insulin Aspart, Recombinant 100 u/ml 10 ml vial SC SCH ×4 (08:31→21:55)
[2018-06-18] MEDS: Naproxen 550 mg Tab PO SCH ×2 (10:13→21:08)
[2018-06-18] MEDS: Pantoprazole 40 mg EC Tab PO SCH (10:13)
[2018-06-18] MEDS: Vancomycin 1 gm/NS 200 ml 1 GM/200 ML BAG IVPB SCH ×2 (10:14→21:45)
[2018-06-18] MEDS: Ciprofloxacin 400mg/200ml D5W 400 MG/200 ML BAG IVPB SCH ×2 (11:34→22:49)
--- NOTE | 2018-06-18 12:47 | CP.PCM.PN ---
Subjective - Date & Time of Evaluation Date of Evaluation: 06/18/18 Time of Evaluation: 12:44 - Subjective Subjective: Podiatry Progress Note for Dr. Mcnair: 68 yo male seen and evaluated at bedside s/p 3 day right 4th partial ray amputation. Patient states that he is in no pain today. He is resting comfortably today. Patient states that he worked with physical therapy and it went well. He denies any other pedal complaints. Denies N/V/F/SOB/CP. Objective - Vital Signs/Intake and Output Vital Signs (last 24 hours): Temp Pulse Resp BP Pulse Ox 98.3 F 78 20 130/75 100 06/18/18 08:11 06/18/18 08:11 06/18/18 08:11 06/18/18 08:11 06/18/18 08:11 Intake and Output: 06/18/18 06/18/18 06:59 18:59 Intake Total 900 Balance 900 - Medications Medications: Current Medications Acetaminophen (Tylenol 325mg Tab) 650 mg PO Q6 PRN PRN Reason: Pain, Mild (1-3) Aspirin (Aspirin Chewable) 81 mg PO DAILY [facility] Last Admin: 06/18/18 10:12 Dose: 81 mg Carvedilol (Coreg) 3.125 mg PO BID [facility] Last Admin: 06/18/18 10:13 Dose: 3.125 mg Clopidogrel Bisulfate (Plavix) 75 mg PO DAILY [facility] Last Admin: 06/18/18 10:12 Dose: 75 mg Vancomycin/Sodium Chloride (Vancomycin 1 Gm/Ns 200 Ml) 1 gm in 200 mls @ 166.6 mls/hr IVPB Q12H ERICK PRN Reason: Protocol Stop: 06/22/18 22:46 Last Admin: 06/18/18 10:14 Dose: 166.6 mls/hr Ciprofloxacin (Cipro 400mg/200ml Dsw) 400 mg in 200 mls @ 133 mls/hr IVPB Q12H ERICK PRN Reason: Protocol Last Admin: 06/18/18 11:34 Dose: 133 mls/hr Insulin Aspart (Novolog) 0 unit SC ACHS ERICK PRN Reason: Protocol Last Admin: 06/18/18 12:28 Dose: 4 units Naproxen (Anaprox Ds) 550 mg PO Q12 [facility] Last Admin: 06/18/18 10:13 Dose: 550 mg Pantoprazole Sodium (Protonix Ec Tab) 40 mg PO DAILY [facility] Last Admin: 06/18/18 10:13 Dose: 40 mg - Labs Labs: 06/16/18 07:09 06/16/18 07:09 PT 12.2 SECONDS (9.7-12.2) 06/09/18 22:02 INR 1.1 06/09/18 22:02 APTT 32 SECONDS (21-34) 06/09/18 22:02 - Constitutional Appears: Well, Non-toxic, No Acute Distress - Head Exam Head Exam: ATRAUMATIC, NORMOCEPHALIC - Extremities Exam Additional comments: Vasc: DP/PT 2/4 b/l, Cap refill < 3 sec X 8, Temp gradient warm to cool from proximal to distal, no edema noted Ortho: Right 4th partial ray amputation, MMT 5/5 in all groups, previous left 5th toe amputation Neuro: Gross sensation diminished, protective sensation absent bilaterally Derm: Surgical site intact with sutures intact and skin edges well coapted. No purulence, no evidence of dehiscence, no clinical signs of infection, no erythema, no evidence of cellulitis - Neurological Exam Neurological Exam: Alert, Awake, Oriented x3 - Psychiatric Exam Psychiatric exam: Normal Affect, Normal Mood Assessment and Plan - Assessment and Plan (Free Text) Assessment: 68 yo male seen and evaluated s/p 3 days right 4th partial ray amputation Plan: Patient seen and evaluated with Dr. Tabby Bowman, chart, labs reviewed; afebrile (06/18) Surgical site dressed with betadine soaked xeroform, and DSD. Right x-ray (06/15): s/p 4th digit transmetatarsal amputation with adjacent post surgical changes PWB to right heel with ambulation in surgical shoe as tolerated Patient stable from podiatry stand point Podiatry will continue to follow while in house
--- NOTE | 2018-06-18 18:26 | PN ---
Copied To: Karthik Linn MD Attending MD: Karthik Linn MD DATE: 06/18/2018 SUBJECTIVE: The patient denies any chest pain or shortness of breath. No foot pain. He was able to ambulate with the walker and his wound VAC changed today. PHYSICAL EXAMINATION: VITAL SIGNS: Blood pressure 130/75, heart rate 78, temperature 98.3, respirations 20. LABORATORY DATA: Today's blood sugars 232 and 306. ASSESSMENT: 1. Peripheral vascular disease status post right superficial femoral artery stenting and status post right fourth toe amputation. 2. Uncontrolled diabetes mellitus. RECOMMENDATIONS: Continue IV vancomycin, continue aspirin and Plavix therapy. Continue Coreg 3.125 mg once a day, IV Cipro 400 mg intravenously every 12 hours. Karthik Linn MD
--- NOTE | 2018-06-18 19:17 | PN ---
Copied To: Aldo Yepez MD Attending MD: Aldo Yepez MD DATE: 06/18/2018 SUBJECTIVE: Today, the patient is alert and awake. No visual problems and no shortness of breath. No chest pain, no palpitation, and no dizziness. PHYSICAL EXAMINATION: VITAL SIGNS: The patient has a blood pressure of 130/75, pulse 70, respiratory rate 20, temperature 98.3. NECK: Supple. No JVD. LUNGS: Clear. HEART: Regular rate and rhythm. ABDOMEN: Soft, nontender. No palpable mass. EXTREMITIES: Amputation of the fourth digit of the right foot. There is no swelling. Foot is warm. Palpable pulse. LABORATORY DATA: The patient has lab tests done and . ASSESSMENT AND PLAN: The plan is that they are going to proceed with antibiotic therapy and going to control the blood pressure and the patient can be discharged if the patient remains stable . Aldo Yepez MD
[2018-06-19 01:07] VITALS: O2SAT 100
[2018-06-19 08:02] LABS: BASO # 0.1 K/uL (0.0-0.2); BASO % 1.5 % (0.0-2.0); EOS # 1.7 K/uL (0.0-0.7); EOS % 19.3 % (0.0-4.0); HEMOGLOBIN 12.3 g/dL (12.0-18.0); LYMPH % 23.5 % (20.0-40.0); MEAN CELL VOLUME 86.8 fL (80.0-94.0); MEAN CORPUSCULAR HEMOGLOBIN 29.3 pg (27.0-31.0); MEAN CORPUSCULAR HGB CONC 33.8 g/dL (33.0-37.0); MEAN PLATELET VOLUME 10.6 fL (7.2-11.7); MONO # 0.7 K/uL (0.0-0.8); MONO % 7.8 % (0.0-10.0); NEUT # 4.1 K/uL (1.8-7.0); NEUT % 47.9 % (50.0-75.0); NRBC % 0.1 % (0.0-2.0); RBC 4.18 Mil/uL (4.40-5.90); RED CELL DISTRIBUTION WIDTH 13.5 % (11.5-14.5); WHITE BLOOD COUNT 8.6 K/uL (4.8-10.8)
[2018-06-19 08:29] VITALS: BP 147/75; PULSE 77; TEMP 97.7
[2018-06-19] MEDS: (Novolog) Insulin Aspart, Recombinant 100 u/ml 10 ml vial SC SCH ×2 (08:30→12:00)
[2018-06-19 09:11] LABS: ALBUMIN 4.2 g/dL (3.5-5.0); ALT/SGPT 40 U/L (21-72); AST/SGOT 28 U/L (17-59); BLOOD UREA NITROGEN 24 mg/dL (9-20); CALCIUM 9.6 mg/dl (8.6-10.4); GFR NON-AFRICAN AMERICAN > 60; HDL CHOLESTEROL 40 mg/dL (30-70)
[2018-06-19 09:22] LABS: LDL CHOLESTEROL 113 mg/dL (0-129)
[2018-06-19] MEDS: Naproxen 550 mg Tab PO SCH (10:34)
[2018-06-19] MEDS: Pantoprazole 40 mg EC Tab PO SCH (10:35)
[2018-06-19] MEDS: Vancomycin 1 gm/NS 200 ml 1 GM/200 ML BAG IVPB SCH (10:36)
[2018-06-19] MEDS: Ciprofloxacin 400mg/200ml D5W 400 MG/200 ML BAG IVPB SCH (12:00)
--- NOTE | 2018-06-19 15:53 | CP.PCM.PN ---
Subjective - Date & Time of Evaluation Date of Evaluation: 06/19/18 Time of Evaluation: 03:00 - Subjective Subjective: dictated Objective - Vital Signs/Intake and Output Vital Signs (last 24 hours): Temp Pulse Resp BP Pulse Ox 97.7 F 77 20 147/75 100 06/19/18 08:28 06/19/18 08:28 06/19/18 08:28 06/19/18 08:28 06/19/18 08:28 - Medications Medications: Current Medications Acetaminophen (Tylenol 325mg Tab) 650 mg PO Q6 PRN PRN Reason: Pain, Mild (1-3) Aspirin (Aspirin Chewable) 81 mg PO DAILY [facility] Last Admin: 06/19/18 10:34 Dose: 81 mg Carvedilol (Coreg) 3.125 mg PO BID [facility] Last Admin: 06/19/18 10:35 Dose: 3.125 mg Clopidogrel Bisulfate (Plavix) 75 mg PO DAILY [facility] Last Admin: 06/19/18 10:34 Dose: 75 mg Vancomycin/Sodium Chloride (Vancomycin 1 Gm/Ns 200 Ml) 1 gm in 200 mls @ 166.6 mls/hr IVPB Q12H [facility] PRN Reason: Protocol Stop: 06/22/18 22:46 Last Admin: 06/19/18 10:36 Dose: 166.6 mls/hr Ciprofloxacin (Cipro 400mg/200ml Dsw) 400 mg in 200 mls @ 133 mls/hr IVPB Q12H [facility] PRN Reason: Protocol Last Admin: 06/19/18 12:00 Dose: 133 mls/hr Insulin Aspart (Novolog) 0 unit SC ACHS [facility] PRN Reason: Protocol Last Admin: 06/19/18 12:00 Dose: 2 units Naproxen (Anaprox Ds) 550 mg PO Q12 [facility] Last Admin: 06/19/18 10:34 Dose: 550 mg Pantoprazole Sodium (Protonix Ec Tab) 40 mg PO DAILY [facility] Last Admin: 06/19/18 10:35 Dose: 40 mg - Labs Labs: 06/19/18 07:53 06/19/18 07:53 PT 12.2 SECONDS (9.7-12.2) 06/09/18 22:02 INR 1.1 06/09/18 22:02 APTT 32 SECONDS (21-34) 06/09/18 22:02
--- NOTE | 2018-06-19 16:27 | CP.PCM.PN ---
Subjective - Date & Time of Evaluation Date of Evaluation: 06/19/18 Time of Evaluation: 16:24 - Subjective Subjective: Podiatry Progress Note for Dr. Mcnair: 68 yo male seen and evaluated at bedside for a post-op check with attending Dr. Mcnair. Patient is s/p 4 days right 4th partial ray amputation. Patient states that he is no pain today. He denies any other pedal complaints. Denies N /V/F/SOB/CP. Objective - Vital Signs/Intake and Output Vital Signs (last 24 hours): Temp Pulse Resp BP Pulse Ox 97.7 F 77 20 147/75 100 06/19/18 08:28 06/19/18 08:28 06/19/18 08:28 06/19/18 08:28 06/19/18 08:28 - Medications Medications: Current Medications Acetaminophen (Tylenol 325mg Tab) 650 mg PO Q6 PRN PRN Reason: Pain, Mild (1-3) Aspirin (Aspirin Chewable) 81 mg PO DAILY [facility] Last Admin: 06/19/18 10:34 Dose: 81 mg Carvedilol (Coreg) 3.125 mg PO BID [facility] Last Admin: 06/19/18 10:35 Dose: 3.125 mg Clopidogrel Bisulfate (Plavix) 75 mg PO DAILY [facility] Last Admin: 06/19/18 10:34 Dose: 75 mg Vancomycin/Sodium Chloride (Vancomycin 1 Gm/Ns 200 Ml) 1 gm in 200 mls @ 166.6 mls/hr IVPB Q12H [facility] PRN Reason: Protocol Stop: 06/22/18 22:46 Last Admin: 06/19/18 10:36 Dose: 166.6 mls/hr Ciprofloxacin (Cipro 400mg/200ml Dsw) 400 mg in 200 mls @ 133 mls/hr IVPB Q12H [facility] PRN Reason: Protocol Last Admin: 06/19/18 12:00 Dose: 133 mls/hr Insulin Aspart (Novolog) 0 unit SC ACHS [facility] PRN Reason: Protocol Last Admin: 06/19/18 12:00 Dose: 2 units Naproxen (Anaprox Ds) 550 mg PO Q12 [facility] Last Admin: 06/19/18 10:34 Dose: 550 mg Pantoprazole Sodium (Protonix Ec Tab) 40 mg PO DAILY [facility] Last Admin: 06/19/18 10:35 Dose: 40 mg - Labs Labs: 06/19/18 07:53 06/19/18 07:53 PT 12.2 SECONDS (9.7-12.2) 06/09/18 22:02 INR 1.1 06/09/18 22:02 APTT 32 SECONDS (21-34) 06/09/18 22:02 - Constitutional Appears: Well, Non-toxic, No Acute Distress - Head Exam Head Exam: ATRAUMATIC, NORMOCEPHALIC - Extremities Exam Additional comments: Vasc: DP/PT 2/4 b/l, Cap refill < 3 sec X 8, Temp gradient warm to cool from proximal to distal, no edema noted Ortho: Right 4th partial ray amputation, MMT 5/5 in all groups, previous left 5th toe amputation Neuro: Gross sensation diminished, protective sensation absent bilaterally Derm: Surgical site intact with sutures intact and skin edges well coapted. No purulence, no evidence of dehiscence, no clinical signs of infection, no erythema, no evidence of cellulitis - Neurological Exam Neurological Exam: Alert, Awake, Oriented x3 - Psychiatric Exam Psychiatric exam: Normal Affect, Normal Mood Assessment and Plan - Assessment and Plan (Free Text) Assessment: 68 yo male seen and evaluated with Dr. Mcnair s/p 4 days right 4th partial ray amputation Plan: Patient seen and evaluated with Dr. Mcnair Surgical site dressed with betadine soaked DSD. Right x-ray (06/15): s/p 4th digit transmetatarsal amputation with adjacent post surgical changes PWB to right heel with ambulation in surgical shoe as tolerated No further surgical intervention needed at this time, patient stable. Podiatry will continue to follow while in house
--- NOTE | 2018-06-19 17:18 | CP.PCM.PN ---
Subjective - Date & Time of Evaluation Date of Evaluation: 06/19/18 Time of Evaluation: 11:00 - Subjective Subjective: alert, orientedx3, no acute pain. Objective - Vital Signs/Intake and Output Vital Signs (last 24 hours): Temp Pulse Resp BP Pulse Ox 97.7 F 77 20 147/75 100 06/19/18 08:28 06/19/18 08:28 06/19/18 08:28 06/19/18 08:28 06/19/18 08:28 - Labs Labs: 06/19/18 07:53 06/19/18 07:53 PT 12.2 SECONDS (9.7-12.2) 06/09/18 22:02 INR 1.1 06/09/18 22:02 APTT 32 SECONDS (21-34) 06/09/18 22:02 Assessment and Plan - Assessment and Plan (Free Text) Assessment: Patient is seen and examined. Alert and orientedx3, denies acute pain on the foot. Cleared by the podiatry, plan to discharge home today as per DR Yepez on cipro for [address] Granado. Advised to follow up with PMD in 1 week.
--- NOTE | 2018-06-19 20:21 | PN ---
Copied To: Karthik Linn MD Attending MD: Karthik Linn MD DATE: 06/19/2018 SUBJECTIVE: The patient is comfortable. He ambulated today. He denied any chest pain. PHYSICAL EXAMINATION: VITAL SIGNS: Blood pressure 147/75, heart rate 77, temperature 97.7, and respirations 20. HEENT: Normocephalic. CHEST: Clear. HEART: S1 and S2 regular. EXTREMITIES: No edema. LABORATORY DATA: Today's hemoglobin, hematocrit, white count, and platelet count are within normal limit. Today's SMA-7 is within normal limit except for glucose of 139 and BUN of 24. ASSESSMENT: 1. Peripheral vascular disease, status post stenting due to the occlusion of the distal right superficial femoral artery. 2. Status post amputation of gangrenous right forth toe. 3. Uncontrolled diabetes mellitus. RECOMMENDATIONS: Continue aspirin 81 mg once a day, IV Cipro 400 mg every 12 hours, Coreg 3.125 mg twice a day, Plavix 75 mg once a day, and vancomycin 1 g every 12 hours. Karthik Linn MD
--- NOTE | 2018-06-19 20:46 | PN ---
Copied To: Feng Granado MD Attending MD: Feng Granado MD DATE: 06/19/2018 INFECTIOUS DISEASE FOLLOWUP NOTE SUBJECTIVE: The patient is afebrile. He is going home today. I was told and he does not want IV antibiotics. His niece was at the bedside and the patient will be going on Cipro p.o. I told needs to follow up with Dr. Mcnair as well as Dr. Yepez and should monitor blood tests and also the wound care as he may need further antibiotics as he had two organisms. PHYSICAL EXAMINATION: VITAL SIGNS: T-max is 97.7, pulse 77, blood pressure is 147/75, respirations are 20. GENERAL: He is awake and alert. HEENT: Head is atraumatic, normocephalic. NECK: Supple. LUNGS: Clear. HEART: S1 and S2 is regular. ABDOMEN: Soft, nontender. No guarding. No rigidity present. EXTREMITIES: Right foot, he has a dressing present. He had surgery. The surgery was for right fourth digit gangrene and osteomyelitis right, for the fourth metatarsal head osteomyelitis. ASSESSMENT AND PLAN: The patient is going home on Cipro p.o. for ten days and along with lactobacillus and the patient will be following with Podiatry as well as the primary. He did come with a gangrene of the right fourth toe and is diabetic. Feng Granado MD
--- NOTE | 2018-06-19 22:26 | CARD ---
APPROVED REPORT Date of service: 06/15/2018 EKG Measurement Heart [id number] ID [id number] <Conclusion> Normal sinus rhythm Nonspecific T wave abnormality Abnormal ECG
--- NOTE | 2018-06-20 02:05 | PN ---
Copied To: Aldo Yepez MD Attending MD: Aldo Yepez MD DATE: 06/19/2018 SUBJECTIVE: Today, the patient is alert and awake. Did not have any pain. No shortness of breath or dizziness. No palpitation. Denied any pain to the legs. PHYSICAL EXAMINATION: VITAL SIGNS: The patient has a blood pressure of 147/75, pulse 77, respirations 20, temperature 97.7, O2 saturation is 100%. LUNGS: Clear. HEART: Regular rate and rhythm. ABDOMEN: Soft. Benign. EXTREMITIES: There is of the right foot. There is no sign of infection in the area. PLAN: The patient was seen earlier by Dr. Mcnair and also Dr. Granado. The plan will be to discharge the patient home on medication. The case was discussed and reviewed with DADA Tomas. Aldo Yepez MD
== END 2018-06-19 16:28 | disposition home or self-care (01) | DRG 271 ==
LOC: C.ER 21:34 → C.3T 23:23 → C.9E 23:23
PROVIDERS: ADMIT Specialist; ATTEND Specialist
PROC: 047M3Z1 Dilation of Right Popliteal Artery using Drug-Coated Balloon, Percutaneous Approach (ICD-10-PCS; principal; 2018-06-13)
PROC: 04CN3ZZ Extirpation of Matter from Left Popliteal Artery, Percutaneous Approach (ICD-10-PCS; 2018-06-13)
PROC: B40DYZZ Plain Radiography of Aorta and Bilateral Lower Extremity Arteries using Other Contrast (ICD-10-PCS; 2018-06-13)
PROC: 0Y6V0Z0 Detachment at Right 4th Toe, Complete, Open Approach (ICD-10-PCS; 2018-06-15)
DX: E11.52 Type 2 diabetes mellitus with diabetic peripheral angiopathy with gangrene (principal); I96 Gangrene, not elsewhere classified; M86.171 Other acute osteomyelitis, right ankle and foot; L03.115 Cellulitis of right lower limb; E11.69 Type 2 diabetes mellitus with other specified complication; E11.65 Type 2 diabetes mellitus with hyperglycemia; E11.40 Type 2 diabetes mellitus with diabetic neuropathy, unspecified; I10 Essential (primary) hypertension; E78.00 Pure hypercholesterolemia, unspecified; Z89.422 Acquired absence of other left toe(s); Z88.0 Allergy status to penicillin; Z79.84 Long term (current) use of oral hypoglycemic drugs

== ENCOUNTER 2018-12-05 10:27 | Outpatient (CLI) | payer MEDICARE | END 2018-12-05 10:28 | disposition home or self-care (01) | LOC: C.VASC 10:27 ==